=== PATIENT | female | born 1945 | race Caucasian/White ===

== ENCOUNTER → 2018-05-20 12:55 | Outpatient (CLI) | payer MEDICARE, OTHER, SELFPAY ==
--- NOTE | 2018-05-20 | DI.MG.S_ITS ---
UNILATERAL RIGHT DIGITAL SCREENING MAMMOGRAM 3D/2D WITH CAD POST MASTECTOMY: 05/20/2018 CLINICAL: Routine screening. Personal history of left breast cancer. Family history of breast cancer. Comparison is made to exams dated: 05/09/2017 mammogram, 05/08/2016 mammogram, and 05/05/2015 mammogram - [facility]. There are scattered fibroglandular elements in the right breast. Current study was also evaluated with a Computer Aided Detection (CAD) system. No significant masses, calcifications, or other findings are seen in the breast. There has been no significant interval change. IMPRESSION: NEGATIVE There is no mammographic evidence of malignancy. A 1 year screening mammogram is recommended. This exam was interpreted at Station ID: [id number]. NOTE: For mammograms, a report in lay terms will be sent to the patient. Approximately 15% of breast malignancies will not be visualized mammographically. In the management of a palpable breast mass, a negative mammogram must not discourage biopsy of a clinically suspicious lesion. Electronically Signed By: Chadd duke/thor:05/20/2018 14:47:42 letter sent: Normal Exam ACR BI-RADS Category 1: Negative 3341F
== END ==
PROVIDERS: PCP Family Medicine; Visit Provider Family Medicine
DX: Z12.31 Encounter for screening mammogram for malignant neoplasm of breast (principal); Z85.3 Personal history of malignant neoplasm of breast; Z80.3 Family history of malignant neoplasm of breast
CPT/HCPCS: 77063; 77065

== ENCOUNTER → 2018-10-07 13:52 | Outpatient (CLI) | payer MEDICARE, OTHER, SELFPAY ==
[2018-10-07 14:43] LABS: Hematocrit 39.3 % (36-46); Hemoglobin 12.8 g/dL (12.0-16.0); Mean Corpuscular HGB Conc 32.6 % (30-36); Mean Corpuscular Hemoglobin 31.5 PG (26-34); Mean Corpuscular Volume 96.6 fL (80-100); Platelet Count 178 X10^3/uL (150-400); Red Blood Cell Count 4.06 X10^6/uL (4.0-5.2); Red Cell Distribution Width 12.5 % (11.6-14.8); White Blood Cell Count 5.3 X10^3/uL (4.5-11.0)
[2018-10-07 15:09] LABS: BUN Creatinine Ratio 18.9 (6-22); Blood Urea Nitrogen 17 mg/dL (7-17); Calcium 9.5 mg/dL (8.4-10.2); Carbon Dioxide 24 mmol/L (22-32); Chloride 102 mmol/L (98-107); Cholesterol 246 mg/dL (140-199); Estimated Glomerular Filt Rate > 60.0 mL/min (>60); Glucose 93 mg/dL (80-110); HDL Cholesterol 96 mg/dL (40-60); HEMOLYSIS < 15 (0-50); LDL Cholesterol Calculated 123 mg/dL (<100); Potassium 4.4 mmol/L (3.4-5.1); Sodium 138 mmol/L (137-145); Triglycerides 137 mg/dL (35-150)
[2018-10-07 15:36] LABS: Vitamin D 25 Hydroxy (D3) 46.5 ng/mL (30.0-100.0)
[2018-10-07 15:38] LABS: TSH w/ Reflex to FT4 0.99 uIU/mL (0.47-4.68)
== END ==
PROVIDERS: PCP Student in an Organized Health Care Education/Training Program; Visit Provider Student in an Organized Health Care Education/Training Program
DX: E55.9 Vitamin D deficiency, unspecified (principal); R00.2 Palpitations; Z13.220 Encounter for screening for lipoid disorders
CPT/HCPCS: 36415; 80048; 80061; 82306; 84443; 85027

== ENCOUNTER → 2019-04-04 14:52 | Outpatient (CLI) | payer MEDICARE, OTHER, SELFPAY ==
--- NOTE | 2019-04-04 14:54 | DI.US.S_ITS ---
PROCEDURE: US EXTREMITY NONVASC LOWER LT INDICATIONS: LOCALIZED MASS TO LT LOWER EXTREMITY TECHNIQUE: Real-time scanning was performed of the left lower extremity, with image documentation. COMPARISON: None. FINDINGS: Multiple grayscale and color Doppler images of the posterior left leg were acquired, targeting the palpable area of patient's concern. This localized to the left lower leg, posterior mid calf. There is a superficial oval hypoechoic mass measuring 6 x 3 x 5 mm in size. It is wider than tall, parallel to the skin surface with apparent peripheral calcifications and resulting posterior shadowing. There is also mild peripheral vascularity. No adjacent architectural distortion. It appears to be deep to the skin and superficial to the underlying muscle fascia. Definitive exclusion of adherence to the fascia cannot be determined secondary to shadowing artifact. IMPRESSION: Oval, hypoechoic, peripherally calcified subcutaneous mass measuring up to 6 mm in size involving the posterior left calf. This correlates with palpable area of patient concern. Minimal peripheral vascularity. Consider excisional biopsy for definitive diagnosis as both benign and malignant lesions can have a similar appearance. Favor nonaggressive etiology. Dictated by: Henry Branham M.D. on 04/04/2019 at 17:14 Approved by: Henry Branham M.D. on 04/04/2019 at 17:18
== END ==
PROVIDERS: PCP Nurse Practitioner; Visit Provider Registered Nurse
DX: R22.42 Localized swelling, mass and lump, left lower limb (principal)
CPT/HCPCS: 76882

== ENCOUNTER → 2019-05-13 09:15 | Outpatient (CLI) | payer MEDICARE, OTHER, SELFPAY ==
[2019-05-13 11:20] LABS: Alanine Aminotransferase 33 IU/L (9-52); Albumin 3.9 g/dL (3.5-5.0); Albumin Globulin Ratio 1.6 (1.0-2.8); Alkaline Phosphatase 73 U/L (38-126); Aspartate Aminotransferase 35 IU/L (14-36); Bilirubin Total 0.6 mg/dL (0.2-1.3); Bilirubin Unconjugated 0.5 mg/dL (0.0-1.1); Cholesterol 154 mg/dL (140-199); Globulin 2.5 g/dL (1.7-4.1); HDL Cholesterol 87 mg/dL (40-60); HEMOLYSIS < 15 (0-50); LDL Cholesterol Calculated 56 mg/dL (<100); Magnesium 1.8 mg/dL (1.6-2.3); Total Protein 6.4 g/dL (6.3-8.2); Triglycerides 57 mg/dL (35-150)
== END ==
PROVIDERS: PCP Student in an Organized Health Care Education/Training Program; Visit Provider Student in an Organized Health Care Education/Training Program
DX: E78.2 Mixed hyperlipidemia (principal); R25.2 Cramp and spasm; Z79.899 Other long term (current) drug therapy
CPT/HCPCS: 36415; 80061; 80076; 83735

== ENCOUNTER → 2019-05-24 10:42 | Outpatient (CLI) | payer MEDICARE, OTHER, SELFPAY ==
--- NOTE | 2019-05-24 | DI.MG.S_ITS ---
UNILATERAL RIGHT DIGITAL SCREENING MAMMOGRAM 3D/2D WITH CAD: 05/24/2019 CLINICAL: Routine screening. Personal history of left breast cancer. Family history of breast cancer. Comparison is made to exams dated: 05/20/2018 mammogram, 05/09/2017 mammogram, and 05/08/2016 mammogram - [facility]. There are scattered fibroglandular elements in right breast. Current study was also evaluated with a Computer Aided Detection (CAD) system. No significant masses, calcifications, or other findings are seen in the breast. There has been no significant interval change. IMPRESSION: NEGATIVE There is no mammographic evidence of malignancy. A 1 year screening mammogram is recommended. This exam was interpreted at Station ID: [id number]. NOTE: For mammograms, a report in lay terms will be sent to the patient. Approximately 15% of breast malignancies will not be visualized mammographically. In the management of a palpable breast mass, a negative mammogram must not discourage biopsy of a clinically suspicious lesion. Electronically Signed By: Meseret dumont/thor:05/27/2019 13:42:02 letter sent: Normal Exam ACR BI-RADS Category 1: Negative 3341F
== END ==
PROVIDERS: PCP Student in an Organized Health Care Education/Training Program; Visit Provider Student in an Organized Health Care Education/Training Program
DX: Z12.31 Encounter for screening mammogram for malignant neoplasm of breast (principal); Z85.3 Personal history of malignant neoplasm of breast; Z80.3 Family history of malignant neoplasm of breast
CPT/HCPCS: 77063; 77067

== ENCOUNTER 2019-06-30 11:53 | Emergency (ER) | payer MEDICARE, OTHER, SELFPAY ==
[2019-06-30 13:00] VITALS: BP 138/76; PULSE 62; RESP 20; TEMP 37.6; O2SAT 96
--- NOTE | 2019-06-30 13:05 | DI.RAD.S_ITS ---
PROCEDURE: XR CHEST 2V INDICATIONS: cough/fever/soa TECHNIQUE: 2 views of the chest were acquired. COMPARISON: [facility], CR, RIBS UNILATERAL WITH PA CXR, 07/06/2017, 15:30. FINDINGS: Surgical changes and devices: None. Lungs and pleura: Lungs are clear. No pleural effusions or pneumothorax. Mediastinum: Mediastinal contours are normal. Heart size is normal. Bones and chest wall: No suspicious bony abnormalities. Soft tissues appear unremarkable. IMPRESSION: Relatively large lung volumes, COPD may be present as the underlying cause but this also could simply represent progressive inspiratory effort. No pneumonia found. Dictated by: Bairon Jain M.D. on 06/30/2019 at 13:36 Approved by: Bairon Jain M.D. on 06/30/2019 at 13:38
[2019-06-30 13:39] LABS: Influenza A and B by PCR Rapid Negative (Negative)
[2019-06-30 14:31] VITALS: BP 138/71; PULSE 60; RESP 13; TEMP 36.7; O2SAT 98
--- NOTE | 2019-06-30 15:02 | ED.FEVER ---
HPI - Fever <JARAD Vasquez - Last Filed: 06/30/19 16:21> General Chief Complaint: Fever Stated Complaint: Flu, pressure on lungs Time Seen by Provider: 06/30/19 14:32 Source: patient Mode of arrival: Ambulatory Limitations: no limitations History of Present Illness HPI Narrative: The patient is a 73-year-old female nonsmoker with history of hyperlipidemia who presents for chief complaint of cough and congestion x5 days. She said she had a temps up to 100?. She states this is high for her. She complains of ear pressure and sore throat with coughing. She denies any abdominal pain nausea vomiting or diarrhea. She states she has tried chct-sxi-bkloqfk cold medications as well as emergency to feel better. Related Data Home Medications Medication Instructions Recorded Confirmed CHOLECALCIFEROL (VITAMIN D) 2,000 units PO QDAY #0 02/11/13 05/07/19 calcium acetate 667 mg PO Q DAY #0 02/11/13 05/07/19 aspirin 81 mg tablet,delayed 81 mg PO DAILY 11/19/18 05/07/19 release esomeprazole magnesium 20 mg 20 mg PO DAILY 11/19/18 05/07/19 capsule,delayed release metoprolol succinate 50 mg PO DAILY 06/30/19 06/30/19 trazodone 300 mg PO BEDTIME 06/30/19 06/30/19 Previous Rx's Medication Instructions Recorded tramadol 50 mg tablet 50 mg PO TID PRN #45 tab 02/28/19 estradiol 10 mcg vaginal tablet 10 mcg VAG 2XW #32 tab 04/28/19 gabapentin 300 mg capsule 300 mg PO BID #60 cap 05/07/19 atorvastatin 40 mg tablet 40 mg PO BEDTIME #30 tab 05/14/19 Allergies Allergy/AdvReac Type Severity Reaction Status Date / Time codeine [CODEINE] AdvReac Mild GI upset Verified 05/07/19 09:49 Review of Systems <JARAD Vasquez - Last Filed: 06/30/19 16:21> Review of Systems Narrative: GENERAL: See HPI HEENT: See HPI RESPIRATORY: See HPI CARDIOVASCULAR: Denies chest pain, palpitations, orthopnea, edema, GASTROINTESTINAL: Denies nausea, vomiting, abdominal pain, diarrhea, constipation, melena. : Denies dysuria, frequency, incontinence, hematuria, urinary retention. MUSCULOSKELETAL: denies weakness, joint pain, or bony pain SKIN: Denies rash, skin lesions, or other NEUROLOGIC: Denies weakness, headache, numbness, change in speech, confusion, seizures, incoordination. PSYCHIATRIC: No concerning psychosocial issues. 12 point review of systems is negative except for those stated above PFSH <Maria A ELIANE Richter-BC - Last Filed: 06/30/19 16:21> Surgical History (Updated 01/22/18 @ 06:21 by DAQUAN Joaquin) History of total mastectomy Status post hysterectomy with oophorectomy Family History (Updated 05/04/14 @ 00:00 by Conversion Provider) Brother Age: 74 Cancer Hypertension Father Congestive heart failure Stroke Mother Breast CA Alcoholism Hypertension Social History Smoking Status: Unknown if ever smoked alcohol intake: current substance use type: marijuana Family History (Updated 05/04/14 @ 00:00 by Conversion Provider) Brother Age: 74 Cancer Hypertension Father Congestive heart failure Stroke Mother Breast CA Alcoholism Hypertension Social History Smoking Status: Unknown if ever smoked alcohol intake: current substance use type: marijuana Exam <Maria A ELIANE Richter- - Last Filed: 06/30/19 16:21> Narrative Exam Narrative: GENERAL: This is a well-nourished, well-developed patient, in no acute distress HEAD: Atraumatic. Normocephalic. No temporal or scalp tenderness. EYES: Pupils equal round and reactive. Extraocular motions intact. No scleral icterus. No injection or drainage. ENT: Nose without bleeding, purulent drainage or septal hematoma. Throat without erythema, tonsillar hypertrophy or exudate. Uvula midline. Airway patent. Bilateral TMs pearly humphries. Bilateral ear canals within normal limits. NECK: Trachea midline. No JVD or lymphadenopathy. Supple, nontender, no meningeal signs. CARDIOVASCULAR: Regular rate and rhythm without murmurs, gallops, or rubs. RESPIRATORY: Clear to auscultation. Breath sounds equal bilaterally. No wheezes, rales, or rhonchi. Occasional cough. Loose sounding. No increased respiratory effort. No accessory muscle use. No stridor. GASTROINTESTINAL: Abdomen soft, non-tender, nondistended. No hepato-splenomegaly, or palpable masses. No guarding. Active bowel sounds all 4 quadrants. EXTREMITIES: No clubbing, cyanosis, or edema. No joint tenderness, effusion, or edema noted. BACK: Nontender without deformity or crepitance. No flank tenderness. NEURO: AOx3. SKIN: No rash or erythema. Initial Vital Signs Initial Vital Signs: Vital Signs Temperature 99.6 F 06/30/19 13:00 Pulse Rate 62 06/30/19 13:00 Respiratory Rate 20 06/30/19 13:00 Blood Pressure 138/76 06/30/19 13:00 Pulse Oximetry 96 06/30/19 13:00 <Maria A Jacobo DO - Last Filed: 06/30/19 19:28> Initial Vital Signs Initial Vital Signs: Vital Signs Temperature 99.6 F 06/30/19 13:00 Pulse Rate 62 06/30/19 13:00 Respiratory Rate 20 06/30/19 13:00 Blood Pressure 138/76 06/30/19 13:00 Pulse Oximetry 96 06/30/19 13:00 Course <JARAD Vasquez - Last Filed: 06/30/19 16:21> Orders Ordered: ED Orders 06/30/19 13:04 Influenza A and B by PCR Rapid Stat 06/30/19 13:05 XR chest 2V Stat Vital Signs Vital signs: Vital Signs - 8 hr 06/30/19 13:00 06/30/19 14:31 Temperature 99.6 F 98.1 F Pulse Rate 62 60 Respiratory Rate 20 13 Blood Pressure 138/76 Blood Pressure [Right Arm] 138/71 Pulse Oximetry 96 98 <Maria A Jacobo DO - Last Filed: 06/30/19 19:28> Orders Ordered: ED Orders 06/30/19 13:04 Influenza A and B by PCR Rapid Stat 06/30/19 13:05 XR chest 2V Stat Vital Signs Vital signs: Vital Signs - 8 hr 06/30/19 13:00 06/30/19 14:31 Temperature 99.6 F 98.1 F Pulse Rate 62 60 Respiratory Rate 20 13 Blood Pressure 138/76 Blood Pressure [Right Arm] 138/71 Pulse Oximetry 96 98 MDM - Fever <JARAD Vasquez Last Filed: 06/30/19 16:21> Lab Data Labs: Lab Results 06/30/19 Range/Units 13:04 Influenza A & B (PCR) Negative (Negative) Imaging Data Chest x-ray: Radiologist's impression: [address] [address] XRay Report Signed Patient: Devi VacaR#: [id number] : 7Acct:[id number] Age/Sex: 73 / FDate of Service: 06/30/19 Loc: ED Accession Number: [id number] Procedure: XR chest 2V Ordering Provider: Maria A Jacobo D.O. PROCEDURE: XR CHEST 2V INDICATIONS: cough/fever/soa TECHNIQUE: 2 views of the chest were acquired. COMPARISON: [facility], CR, RIBS UNILATERAL WITH PA CXR, 07/06/2017, 15:30. FINDINGS: Surgical changes and devices: None. Lungs and pleura: Lungs are clear. No pleural effusions or pneumothorax. Mediastinum: Mediastinal contours are normal. Heart size is normal. Bones and chest wall: No suspicious bony abnormalities. Soft tissues appear unremarkable. IMPRESSION: Relatively large lung volumes, COPD may be present as the underlying cause but this also could simply represent progressive inspiratory effort. No pneumonia found. Dictated by: Bairon Jain M.D. on 06/30/2019 at 13:36 Approved by: Bairon Jain M.D. on 06/30/2019 at 13:38 MDM Narrative Medical decision making narrative: The patient is a 73-year-old female who presents for chief complaint of I think I might have the flu or pneumonia.She has negative flu in her chest x-ray does not show any pneumonia. I offered to do further lab work, but the patient declined stating she did receive which she in the emergency department. She has a benign overall exam, no indications of bacterial infection, and is in no acute respiratory distress. Her vital signs remained stable. I discussed at length follow up with primary care provider as well as come back to emergency department for any acute concerns such as chest pain, shortness of breath etc. Encouraged continued athe-myr-tjvsvhv remedy as needed and able. Patient has no questions or concerns, reiterates that she would like to leave without further workup states understanding of return precautions as well as follow-up care. <Maria A Jacobo DO - Last Filed: 06/30/19 19:28> Lab Data Labs: Lab Results 06/30/19 Range/Units 13:04 Influenza A & B (PCR) Negative (Negative) Discharge Plan Departure Patient Disposition: Home Clinical Impression: Cough, Acute viral syndrome Discharge Date/Time: 06/30/19 15:11 Instructions: DI for Cough -- Adult, DI for Viral Upper Respiratory Infection -- Adult, DI for Viral Syndrome Activity Restrictions/Additional Instructions: Today your flu test came back negative. Your x-ray shows no pneumonia. You have no evidence of bacterial infection on your exam. Please continue yqby-zqc-clmlcen remedies such as sinus rinse, Flonase, and honey and lemon to help feel better. Please rest and push fluids. Please follow up with primary care provider for re-evaluation in a few days. Please come back to emergency department for any acute concerns such as chest pain, shortness of breath etc Prescriptions: No Action calcium acetate 667 MG capsule 667 mg PO Q DAY Qty: 0 RF: 0 CHOLECALCIFEROL (VITAMIN D) 2,000 units PO QDAY Qty: 0 RF: 0 estradiol [Vagifem] 10 mcg tablet 10 mcg VAG 2XW Qty: 32 RF: 3 atorvastatin 40 mg tablet 40 mg PO BEDTIME Qty: 30 RF: 5 aspirin [Adult Low Dose Aspirin] 81 mg tablet,delayed release (DR/EC) 81 mg PO DAILY RF: 0 esomeprazole magnesium 20 mg capsule,delayed release(DR/EC) 20 mg PO DAILY RF: 0 tramadol 50 mg tablet 50 mg PO TID PRN (Reason: pain) Qty: 45 RF: 5 gabapentin 300 mg capsule 300 mg PO BID Qty: 60 RF: 0 metoprolol succinate 50 mg tablet extended release 24 hr 50 mg PO DAILY RF: 0 trazodone 100 mg tablet 300 mg PO BEDTIME RF: 0 Referrals: Marlo Sylvester MD [Primary Care Provider] -
== END 2019-06-30 15:11 | disposition home or self-care (01) ==
PROVIDERS: Emergency Medicine; Emergency Provider Nurse Practitioner Family; PCP Student in an Organized Health Care Education/Training Program
DX: R05 Cough (principal); B34.9 Viral infection, unspecified
CPT/HCPCS: 71046; 87400; 87502; 99282; 99284

== ENCOUNTER 2019-11-27 13:27 | Day surgery (SDC) | payer MEDICARE, OTHER, SELFPAY ==
[2019-11-27 13:53] VITALS: BP 127/75; PULSE 71; RESP 16; TEMP 36.8; O2SAT 96; BMI 22.3
[2019-11-27] MEDS: SODIUM CHLORIDE 0.9% 1,000 ML 200 ML IV (14:02)
--- NOTE | 2019-11-27 14:20 | PM.HP.1 ---
History of Present Illness History of Present Illness Date Patient Seen: 11/27/19 Time Patient Seen: 14:20 Chief complaint: [id number] Narrative: Patient presents for colorectal screening. They had a prior colonoscopy 5 years ago that demonstraed polyps. No personal or family history of colon cancer. On further history denies any recent gastrointestinal symptoms. No nausea, vomiting, abdominal pain, loss of appetite, unexplained weight loss, change in bowel habits, diarrhea, constipation, melena, hematochezia, or bright red blood per rectum. Patient History Surgical History History of total mastectomy Status post hysterectomy with oophorectomy Family & Social History Family History Brother Age: 74 Cancer Hypertension Father Congestive heart failure Stroke Mother Breast CA Alcoholism Hypertension Social History: household members significant other Tobacco & Substance use: Smoking Status Unknown if ever smoked alcohol intake current alcohol intake frequency 0-2 drinks per day Substance Use Type does not use Meds Home Medications and Allergies Home Medications Medication Instructions Recorded Confirmed Type CHOLECALCIFEROL (VITAMIN D) 2,000 units PO QDAY #0 02/11/13 11/25/19 History calcium acetate(phosphat bind) 667 mg PO Q DAY #0 02/11/13 11/25/19 History aspirin 81 mg tablet,delayed 81 mg PO DAILY 11/19/18 11/25/19 History release metoprolol succinate 50 mg PO DAILY 06/30/19 11/25/19 History estradiol 10 mcg vaginal tablet 10 mcg VAG 2XW #30 tab 09/03/19 11/25/19 Rx mupirocin 2 % topical ointment 1 applic TOP BID #30 gram 09/24/19 11/25/19 Rx trazodone 100 mg tablet 300 mg PO BEDTIME #270 tab 10/06/19 11/25/19 Rx atorvastatin 40 mg tablet 40 mg PO BEDTIME #90 tab 10/07/19 11/25/19 Rx tramadol 50 mg tablet 50 mg PO TID PRN #45 tab 10/07/19 11/25/19 Rx sodium,potassium,mag sulfates 17.5 177 ml PO DAILY #354 ml 11/05/19 11/25/19 Rx gram-3.13 gram-1.6 gram oral soln benzonatate 100 mg capsule 100 mg PO BID PRN 7 Days #14 cap 11/25/19 11/25/19 Rx prednisone 10 mg tablet 20 mg PO DAILY #10 tab 11/25/19 11/25/19 Rx Allergies Allergy/AdvReac Type Severity Reaction Status Date / Time codeine [CODEINE] AdvReac Mild GI upset Verified 11/25/19 16:36 Review of Systems Review of Systems Narrative: A 10 point review of systems is negative except as noted in the HPI Exam Vital Signs (past 8 hours): - 11/27/19 13:53 Temperature 98.3 F Pulse Rate 71 Respiratory Rate 16 Blood Pressure 127/75 Pulse Oximetry 96 Oxygen Delivery Method Room Air Narrative Exam Narrative: General-no acute distress, well nourished HEENT-moist mucous membranes, no scleral icterus Neck-supple, no lymphadenopathy Chest- non labored respirations, clear to auscultation bilaterally Cardiac-regular rate no peripheral edema Abdomen-soft, nontender, non distended Extremities-warm, well perfused Neurological-alert and oriented, no focal deficits Assessment & Plan Assessment and plan (1) Screening for colon cancer: Current visit: Yes Status: Acute Assessment & Plan narrative: The patient requires colorectal screening and colonoscopy is recommended. Technical details were discussed. Risks, benefits, alternatives explained. Risks including but not limited to myocardial infarction, aspiration, bleeding, pain, missed lesion, incomplete examination, need for further radiographic studies, colonic perforation, and need for major abdominal surgery were discussed. All questions were answered to their satisfaction, and they are in agreement with this plan.
[2019-11-27] MEDS: MIDAZOLAM 5 MG/5 ML VIAL IV (14:31)
[2019-11-27] MEDS: fentaNYL 250 MCG/5 ML INJ IV (14:32)
--- NOTE | 2019-11-27 14:58 | PM.OP.ENDO ---
Operative Date/Time/Diagnoses Date of procedure: 11/27/19 Time of procedure: 14:58 Pre-op diagnosis: Screening colonoscopy Post-op diagnosis: same Procedure & Clinicians Study performed: Colonoscopy Same procedure as scheduled: Yes Indications: History of adenomatous polyps Surgeon: Adam Alcaraz Procedure Notes SCOAP/Timeout: Performed Procedure in detail: Patient placed in left lateral decubitus position. Time out was performed. Procedural sedation was administered with Versed and Fentanyl. A rectal exam demonstrated no external hemorrhoids no internal masses. Colonoscopy scope was placed into the rectum and advanced through the colon to the cecum. The ileocecal valve was identified. The scope was then slowly withdrawn examining colon thoroughly in all directions. The colonoscopy was notable for the following 1. Sigmoid diverticulosis 2. Quality of prep excellent 3. No masses or polyps Scope withdrawal time: 7 Sedation minutes: 25 Findings: diverticulosis Specimen(s): none sent Complications: none Impression: Diverticulosis Post-procedure Recommendations: Colonscopy in 10 years Disposition: same day surgery
[2019-11-27 15:05] VITALS: BP 133/57; PULSE 75; RESP 10; TEMP 36.8; O2SAT 93
[2019-11-27 15:10] VITALS: BP 126/53; PULSE 70; RESP 12; O2SAT 6
[2019-11-27 15:15] VITALS: BP 121/49; PULSE 70; RESP 12; O2SAT 93
[2019-11-27 15:20] VITALS: BP 110/62; BP 145/65; PULSE 74; PULSE 80; RESP 16; TEMP 36.2; O2SAT 95; O2SAT 96
--- NOTE | 2019-11-27 15:51 | SUR.PHASEII ---
discharged patient home with all belongings in stable condition with friend. No pain or vomiting noted at discharge. VSS.
== END 2019-11-27 15:51 | disposition home or self-care (01) ==
PROVIDERS: PCP Student in an Organized Health Care Education/Training Program; Referring Provider Surgery; Visit Provider Surgery
PROC: 0DJD8ZZ Inspection of Lower Intestinal Tract, Via Natural or Artificial Opening Endoscopic (ICD-10-PCS; CPT 45378; principal; 2019-11-27 14:30)
DX: Z12.11 Encounter for screening for malignant neoplasm of colon (principal); Z86.010 Personal history of colon polyps; K57.30 Diverticulosis of large intestine without perforation or abscess without bleeding
CPT/HCPCS: G0105; 99152; J2250; J3010

== ENCOUNTER → 2019-12-04 14:17 | Outpatient (CLI) | payer MEDICARE, OTHER, SELFPAY ==
--- NOTE | 2019-12-04 14:19 | DI.RAD.S_ITS ---
PROCEDURE: XR CHEST 2V INDICATIONS: Cough TECHNIQUE: 2 views of the chest were acquired. COMPARISON: [facility], CR, XR CHEST 2V, 06/30/2019, 14:06. FINDINGS: Surgical changes and devices: Surgical changes in the left breast and axilla. Lungs and pleura: Lungs are clear. No pleural effusions or pneumothorax. Mediastinum: Mediastinal contours are normal. Heart size is normal. Bones and chest wall: No suspicious bony abnormalities. Soft tissues appear unremarkable. IMPRESSION: No acute cardiopulmonary disease. Dictated by: Chuyita Rod M.D. on 12/04/2019 at 15:24 Approved by: Chuyita Rod M.D. on 12/04/2019 at 15:25
== END ==
PROVIDERS: PCP Student in an Organized Health Care Education/Training Program; Referring Provider Student in an Organized Health Care Education/Training Program; Visit Provider Student in an Organized Health Care Education/Training Program
DX: R05 Cough (principal)
CPT/HCPCS: 71046

== ENCOUNTER → 2020-04-20 09:05 | Outpatient (CLI) | payer MEDICARE, OTHER, SELFPAY ==
[2020-04-20 09:52] LABS: Add Manual Diff / Slide Review NO; Basophils Absolute Auto 0 /uL (0-100); Basophils Percent Auto 0.8 % (0-2); Eosinophils Absolute Auto 100 /uL (0-450); Hematocrit 36.5 % (36-46); Hemoglobin 12.1 g/dL (12.0-16.0); Lymphocytes Absolute Auto 1100 /uL (1100-4500); Lymphocytes Percent Auto 27.1 % (25-40); Mean Corpuscular HGB Conc 33.2 % (30-36); Mean Corpuscular Hemoglobin 31.6 PG (26-34); Mean Corpuscular Volume 95.3 fL (80-100); Monocytes Absolute Auto 500 /uL (0-900); Neutrophils Absolute Auto 2400 /uL (1500-7000); Neutrophils Percent Auto 59.1 % (50-75); Platelet Count 146 X10^3/uL (150-400); Red Blood Cell Count 3.84 X10^6/uL (4.0-5.2); Red Cell Distribution Width 13.2 % (11.6-14.8); White Blood Cell Count 4.1 X10^3/uL (4.5-11.0)
[2020-04-20 10:37] LABS: Erythrocyte Sedimentation Rate 4 MM/HR (0-20)
[2020-04-20 11:04] LABS: C-Reactive Protein Quant < 0.5 mg/dL (<1.0)
== END ==
PROVIDERS: PCP Student in an Organized Health Care Education/Training Program; Referring Provider Orthopaedic Surgery; Visit Provider Orthopaedic Surgery
DX: M25.561 Pain in right knee (principal); T84.53XA Infection and inflammatory reaction due to internal right knee prosthesis, initial encounter
CPT/HCPCS: 36415; 85025; 85651; 86140

== ENCOUNTER → 2020-06-25 10:41 | Outpatient (CLI) | payer MEDICARE, OTHER, SELFPAY ==
--- NOTE | 2020-06-25 | DI.MG.S_ITS ---
UNILATERAL RIGHT DIGITAL SCREENING MAMMOGRAM 3D/2D WITH CAD POST MASTECTOMY: 06/25/2020 CLINICAL: Routine screening. Personal history of left breast cancer. Family history of breast cancer. Comparison is made to exams dated: 05/24/2019 mammogram, 05/20/2018 mammogram, and 05/09/2017 mammogram - [facility]. There are scattered fibroglandular elements in right breast. Current study was also evaluated with a Computer Aided Detection (CAD) system. No significant masses, calcifications, or other findings are seen in the breast. There has been no significant interval change. IMPRESSION: NEGATIVE There is no mammographic evidence of malignancy. A 1 year screening mammogram is recommended. This exam was interpreted at Station ID: [id number]. NOTE: For mammograms, a report in lay terms will be sent to the patient. Approximately 15% of breast malignancies will not be visualized mammographically. In the management of a palpable breast mass, a negative mammogram must not discourage biopsy of a clinically suspicious lesion. Electronically Signed By: Meseret dumont/thor:06/25/2020 11:26:48 letter sent: Normal Exam ACR BI-RADS Category 1: Negative 3341F
== END ==
PROVIDERS: PCP Student in an Organized Health Care Education/Training Program; Referring Provider Student in an Organized Health Care Education/Training Program; Visit Provider Student in an Organized Health Care Education/Training Program
DX: Z12.31 Encounter for screening mammogram for malignant neoplasm of breast (principal); Z85.3 Personal history of malignant neoplasm of breast; Z80.3 Family history of malignant neoplasm of breast
CPT/HCPCS: 77063; 77067

== ENCOUNTER → 2020-07-01 12:48 | Outpatient (CLI) | payer MEDICARE, OTHER, SELFPAY ==
--- NOTE | 2020-07-01 | DI.RAD.S_ITS ---
PROCEDURE: XR DEXA AXIAL SKELETON INDICATIONS: SCREENING COMPARISON: None. FINDINGS: This blank DEXA report has been sent in error by the PACS system. The correct and complete report will be forthcoming in 1-2 days. Thank you for your patience and understanding. Dictated by: Ernestina Segundo MD, PhD on 07/01/2020 at 16:15 Approved by: Ernestina Segundo MD, PhD on 07/01/2020 at 16:17
== END ==
PROVIDERS: PCP Student in an Organized Health Care Education/Training Program; Referring Provider Student in an Organized Health Care Education/Training Program; Visit Provider Student in an Organized Health Care Education/Training Program
DX: Z13.820 Encounter for screening for osteoporosis (principal); M85.851 Other specified disorders of bone density and structure, right thigh; Z78.0 Asymptomatic menopausal state; Z90.722 Acquired absence of ovaries, bilateral; Z85.3 Personal history of malignant neoplasm of breast; Z87.891 Personal history of nicotine dependence
CPT/HCPCS: 77080

== ENCOUNTER → 2021-01-28 15:20 | Outpatient (CLI) | payer MEDICARE, OTHER, SELFPAY ==
--- NOTE | 2021-01-28 15:23 | DI.RAD.S_ITS ---
PROCEDURE: XR SACRUM COCCYX MIN 2V INDICATIONS: Re-evaluate worsening lumbar spinal pain TECHNIQUE: 3 views of the sacrum and coccyx acquired. COMPARISON: None. FINDINGS: Bones: No fractures or dislocations. No suspicious bony lesions. Lumbar spondylosis and facet arthropathy. Mild bilateral hip osteoarthritis. Trace anterolisthesis of L4 on L5. Soft tissues: Surgical clips project in the right pelvis. IMPRESSION: Lumbar spondylosis and facet arthropathy. Mild bilateral hip osteoarthritis. Dictated by: Alberto Espinosa M.D. on 01/28/2021 at 16:11 Approved by: Alberto Espinosa M.D. on 01/28/2021 at 16:12
--- NOTE | 2021-01-28 15:23 | DI.RAD.S_ITS ---
PROCEDURE: XR LUMBAR SPINE 2-3V INDICATIONS: Re-evaluate worsening lumbar spinal pain TECHNIQUE: 3 views of the lumbar spine were acquired. COMPARISON: [facility], , L-SPINE 2-3 VIEWS, 07/06/2017, 15:30. FINDINGS: Bones: No fracture. Grade 1 anterolisthesis of L4 on L5 and trace anterolisthesis of L3 on L4. Multilevel degenerative endplate sclerosis and spurring. Diffuse facet arthropathy. Moderate narrowing of the L2-L3 disc space. Mild narrowing of the remaining lumbar disc spaces. Lower thoracic spondylitic changes also noted. Soft tissues: Overlying bowel gas pattern is normal. No suspicious soft tissue calcifications. IMPRESSION: Multilevel lumbar spondylosis and facet arthropathy. Overall, no interval change since 07/06/17. Dictated by: Alberto Espinosa M.D. on 01/28/2021 at 16:12 Approved by: Alberto Espinosa M.D. on 01/28/2021 at 16:14
== END ==
PROVIDERS: PCP Student in an Organized Health Care Education/Training Program; Referring Provider Student in an Organized Health Care Education/Training Program; Visit Provider Student in an Organized Health Care Education/Training Program
DX: M54.5 Low back pain (principal); M47.816 Spondylosis without myelopathy or radiculopathy, lumbar region; M51.36 Other intervertebral disc degeneration, lumbar region; M16.0 Bilateral primary osteoarthritis of hip
CPT/HCPCS: 72100; 72220

== ENCOUNTER → 2021-04-22 17:43 | Outpatient (CLI) | payer MEDICARE, OTHER, SELFPAY ==
--- NOTE | 2021-04-22 | DI.MRI.S_ITS ---
PROCEDURE: MR LUMBAR SPINE WO CON INDICATIONS: Spinal stenosis, lumbar region with neurogenic cla TECHNIQUE: Noncontrast sagittal T1 spin echo and T2 fast echo, sagittal STIR, axial T1 and T2 fast spin echo through the lumbar spine. In cases with scoliosis, additional coronal T2 fast spin echo may be performed. COMPARISON: [facility], MR, L-SPINE WITHOUT CONTRAST, 05/26/2015, 8:10. [facility], MR, L-SPINE WITHOUT CONTRAST, 01/10/2018, 16:25. [facility], CR, XR LUMBAR SPINE 2-3V, 01/28/2021, 15:30. FINDINGS: Image quality: Excellent. Alignment and Curvature: There is mild L4-L5 anterolisthesis secondary to facet hypertrophy. There is trace L2-L3 retrolisthesis secondary to facet hypertrophy. Bone Marrow: Marrow is of normal overall signal. No acute vertebral body compression fractures. Spinal Cord: Conus medullaris terminates at the T12-L1 disc level. Visualized cord demonstrates normal signal and size. Paraspinous Soft Tissues: No paravertebral masses. T12-L1: Normal appearance. L1-L2: Slight loss of disc signal. Minimal, diffuse disc bulge. Mild bilateral facet hypertrophy. No central stenosis. No neural foraminal narrowing. No neural compression. L2-L3: Loss of disc signal and mild loss of disc height. Mild, diffuse disc bulge. Mild bilateral facet hypertrophy. Mild narrowing of the central canal. Mild bilateral neural foraminal narrowing. No neural compression. L3-L4: Loss of disc signal. Mild, diffuse disc bulge. [id number] bilateral facet hypertrophy. Mild narrowing of the central canal. Mild bilateral neural foraminal narrowing. No neural compression. L4-L5: Loss of disc signal and mild loss of disc height. Mild, diffuse disc bulge. Severe bilateral facet hypertrophy. Moderate to severe narrowing of the central canal. Mild to moderate right and severe left neural foraminal narrowing with slight compression of the exiting left L4 nerve root. L5-S1: Loss of disc signal. Mild, diffuse disc bulge. Moderate bilateral facet hypertrophy. No central stenosis. Mild bilateral neural foraminal narrowing. No neural compression. IMPRESSION: 1. Multilevel degenerative disc disease. 2. Multilevel facet arthropathy. 3. Moderate to severe L4-L5 central canal narrowing. 4. Severe left L4-L5 neural foraminal narrowing with slight compression of the exiting left L4 nerve root. 5. Grade 1 L4-L5 degenerative spondylolisthesis. Dictated by: Ernestina Segundo MD, PhD on 04/25/2021 at 10:49 Approved by: Ernestina Segundo MD, PhD on 04/25/2021 at 10:53
== END ==
PROVIDERS: PCP Student in an Organized Health Care Education/Training Program; Referring Provider Orthopaedic Surgery Orthopaedic Surgery of the Spine; Visit Provider Orthopaedic Surgery Orthopaedic Surgery of the Spine
DX: M48.062 Spinal stenosis, lumbar region with neurogenic claudication (principal); M43.16 Spondylolisthesis, lumbar region; M51.36 Other intervertebral disc degeneration, lumbar region; M51.37 Other intervertebral disc degeneration, lumbosacral region; M47.816 Spondylosis without myelopathy or radiculopathy, lumbar region; M47.817 Spondylosis without myelopathy or radiculopathy, lumbosacral region
CPT/HCPCS: 72148

== ENCOUNTER 2021-04-27 15:44 | Emergency (ER) | payer MEDICARE, OTHER, SELFPAY ==
[2021-04-27 15:53] VITALS: BP 129/69; PULSE 55; RESP 16; TEMP 36.4; O2SAT 99
--- NOTE | 2021-04-27 15:56 | DI.RAD.S_ITS ---
PROCEDURE: XR TOE LT MIN 2V INDICATIONS: dropped calero on foot TECHNIQUE: 3 views of the 1st and 2nd toe(s) acquired. COMPARISON: None. FINDINGS: Bones: No fractures or dislocations. No suspicious bony lesions. Remote great toe metatarsal osteotomy and bunionectomy. Orthopedic screws are intact with no evidence of hardware failure or loosening. 1st MTP degenerative change. Soft tissues: No suspicious soft tissue densities. IMPRESSION: No evidence of acute fracture or dislocation involving the 1st and 2nd toes of the left foot. Dictated by: Joe Delcid M.D. on 04/27/2021 at 16:24 Approved by: Joe Delcid M.D. on 04/27/2021 at 16:26
--- NOTE | 2021-04-27 19:13 | ED_ITS ---
HPI - Extremity Injury (Lower) General Chief Complaint: Extremity Injury, Lower Stated Complaint: lt toe injury Time Seen by Provider: 04/27/21 19:11 Source: patient Mode of arrival: Ambulatory History of Present Illness HPI Narrative: Patient is a 75-year-old female here for evaluation of an injury that she sustained to her left great toe. States that approximately 1 week ago she dropped something on her toe. She has had some discomfort and bruising around the area since then. Symptoms were not improving so she came to the emergency department for evaluation. Related Data Home Medications Medication Instructions Recorded Confirmed CHOLECALCIFEROL (VITAMIN D) 2,000 units PO QDAY #0 02/11/13 06/22/20 calcium acetate(phosphat bind) 667 667 mg PO Q DAY #0 02/11/13 06/22/20 mg capsule aspirin 81 mg tablet,delayed 81 mg PO DAILY 11/19/18 06/22/20 release (Adult Low Dose Aspirin) Previous Rx's Medication Instructions Recorded mupirocin 2 % topical ointment 1 applic TOP BID #30 gram 09/24/19 sodium,potassium,mag sulfates 17.5 177 ml PO DAILY #354 ml 11/05/19 gram-3.13 gram-1.6 gram oral soln (Suprep Bowel Prep Kit) estradiol 10 mcg vaginal tablet 10 mcg VAG 2XW #30 tab 09/08/20 (Vagifem) trazodone 100 mg tablet 300 mg PO BEDTIME #270 tab 09/09/20 atorvastatin 40 mg tablet 40 mg PO BEDTIME #90 tab 10/05/20 tramadol 50 mg tablet 50 mg PO DAILY PRN #30 tab 01/14/21 metoprolol succinate 50 mg 50 mg PO DAILY #90 tab 04/18/21 tablet,extended release 24 hr Allergies Allergy/AdvReac Type Severity Reaction Status Date / Time codeine [CODEINE] AdvReac Mild GI upset Verified 06/22/20 14:32 Review of Systems Musculoskeletal Comments: Left great toe and 2nd toe pain Integumentary/Breasts Comments: Bruising around the left great toe and 2nd toe Neurologic Neurologic: Reports system reviewed and no additional complaints, except as documented Hematologic/Lymphatic On Anticoagulants: No Patient History Medical History Degenerative disc disease Facet arthropathy, lumbar Lymphedema (09/01/02) Palpitations Surgical History History of total mastectomy Status post hysterectomy with oophorectomy Family History Brother Age: 75 Cancer Hypertension Father Congestive heart failure Stroke Mother Breast CA Alcoholism Hypertension Social History household members: significant other Smoking Status: Unknown if ever smoked alcohol intake: current substance use type: marijuana Smoking Status: Unknown if ever smoked alcohol intake frequency: 0-2 drinks per day Substance Use Type: does not use Exam Initial Vital Signs Initial Vital Signs: Vital Signs Temperature 97.6 F 04/27/21 15:53 Pulse Rate 55 L 04/27/21 15:53 Respiratory Rate 16 04/27/21 15:53 Blood Pressure 129/69 04/27/21 15:53 Pulse Oximetry 99 04/27/21 15:53 HENMT Head: normal to inspection and normocephalic Cardio Pulses: dorsalis pedis present on the left Skin Other: Mild bruising around the MTP joint of the left great toe and 2nd toe. Neuro Sensory Exam: no sensory deficits noted Extrem Other: Patient with minimal tenderness to palpation along the left great toe. Rest of her left foot exam is unremarkable Psych Appearance: grossly normal and well kempt Course Orders Ordered: ED Orders 04/27/21 15:56 XR toe LT min 2V Stat Vital Signs Vital signs: Vital Signs - 8 hr 04/27/21 15:53 Temperature 97.6 F Pulse Rate 55 L Respiratory Rate 16 Blood Pressure 129/69 Pulse Oximetry 99 MDM - Extremity Injury (Lower) Imaging Data Extremity x-ray #1: Radiologist's Impression: [address] [id number] ReportSigned Patient: Devi Vaca#: [id number]: 1945cct:[id number]/Sex: 75 / FDate of Service: 04/27/21Loc: EDAccession Number: [id number] Procedure: XR toe LT min 2V Ordering Provider: Maria A Jacobo D.O. PROCEDURE: XR TOE LT MIN 2V INDICATIONS: dropped calero on foot TECHNIQUE: 3 views of the 1st and 2nd toe(s) acquired. COMPARISON: None. FINDINGS: Bones: No fractures or dislocations. No suspicious bony lesions. Remote great toe metatarsal osteotomy and bunionectomy. Orthopedic screws are intact with no evidence of hardware failure or loosening. 1st MTP degenerative change. Soft tissues: No suspicious soft tissue densities. IMPRESSION: No evidence of acute fracture or dislocation involving the 1st and 2nd toes of the left foot. Dictated by: Joe Delcid M.D. on 04/27/2021 at 16:24 Approved by: Joe Delcid M.D. on 04/27/2021 at 16:26 MDM Narrative Medical decision making narrative: No fractures noted on the x-ray. She is neurovascularly intact. Does have bruising around this area which I suspect is from the injury that she sustained approximately 1 week ago. No further workup needed here in the emergency department. She was given care instructions and return precautions. She expressed understanding and agreement. Discharge Plan Departure Patient Disposition: Home Clinical Impression: Contusion of toe of left foot Instructions: DI for Contusion Activity Restrictions/Additional Instructions: There were no fractures noted on the x-rays. Do recommend that you keep your foot elevated and also use ice. Things should improve over the next couple days. Return to the emergency department for any new or worsening symptoms Prescriptions: No Action mupirocin 2 % ointment 1 applic TOP BID Qty: 30 RF: 0 calcium acetate(phosphat bind) 667 MG capsule 667 mg PO Q DAY Qty: 0 RF: 0 CHOLECALCIFEROL (VITAMIN D) 2,000 units PO QDAY Qty: 0 RF: 0 Suprep Bowel Prep Kit 17.5-3.13-1.6 gram recon soln 177 ml PO DAILY Qty: 354 RF: 0 estradiol [Vagifem] 10 mcg tablet 10 mcg VAG 2XW Qty: 30 RF: 3 trazodone 100 mg tablet 300 mg PO BEDTIME Qty: 270 RF: 2 atorvastatin 40 mg tablet 40 mg PO BEDTIME Qty: 90 RF: 3 metoprolol succinate 50 mg tablet extended release 24 hr 50 mg PO DAILY Qty: 90 RF: 1 aspirin [Adult Low Dose Aspirin] 81 mg tablet,delayed release (DR/EC) 81 mg PO DAILY RF: 0 tramadol 50 mg tablet 50 mg PO DAILY PRN (Reason: pain) Qty: 30 RF: 5 Referrals: Marlo Sylvester MD [Primary Care Provider] -
[2021-04-27 19:20] VITALS: BP 137/63; PULSE 57; RESP 20; O2SAT 98
== END 2021-04-27 19:25 | disposition home or self-care (01) ==
PROVIDERS: Emergency Provider Emergency Medicine; PCP Student in an Organized Health Care Education/Training Program
DX: S90.112A Contusion of left great toe without damage to nail, initial encounter (principal); W22.8XXA Striking against or struck by other objects, initial encounter
CPT/HCPCS: 73660; 99283

== ENCOUNTER → 2021-06-30 08:30 | Outpatient (CLI) | payer MEDICARE, OTHER, SELFPAY ==
--- NOTE | 2021-06-30 | DI.MG.S_ITS ---
UNILATERAL RIGHT DIGITAL SCREENING MAMMOGRAM 3D/2D WITH CAD: 06/30/2021 CLINICAL: Routine screening. Personal history of left breast cancer. Family history of breast cancer. Routine screening. Comparison is made to exams dated: 06/25/2020 mammogram, 05/24/2019 mammogram, and 05/20/2018 mammogram - [facility]. There are scattered fibroglandular elements in right breast. Current study was also evaluated with a Computer Aided Detection (CAD) system. No significant masses, calcifications, or other findings are seen in the breast. There has been no significant interval change. IMPRESSION: NEGATIVE There is no mammographic evidence of malignancy. A 1 year screening mammogram is recommended. This exam was interpreted at Station ID: [id number]. NOTE: For mammograms, a report in lay terms will be sent to the patient. Approximately 15% of breast malignancies will not be visualized mammographically. In the management of a palpable breast mass, a negative mammogram must not discourage biopsy of a clinically suspicious lesion. Electronically Signed By: Andres gilliam/thor:06/30/2021 10:23:54 letter sent: Normal Exam ACR BI-RADS Category 1: Negative [id number]
== END ==
PROVIDERS: PCP Family Medicine; Referring Provider Student in an Organized Health Care Education/Training Program; Visit Provider Student in an Organized Health Care Education/Training Program
DX: Z12.31 Encounter for screening mammogram for malignant neoplasm of breast (principal); Z85.3 Personal history of malignant neoplasm of breast; Z80.3 Family history of malignant neoplasm of breast
CPT/HCPCS: 77063; 77067

== ENCOUNTER → 2021-07-04 13:08 | Outpatient (CLI) | payer MEDICARE, OTHER, SELFPAY ==
[2021-07-04 15:05] LABS: Add Manual Diff / Slide Review NO; Basophils Absolute Auto 0 /uL (0-100); Basophils Percent Auto 0.8 % (0-2); Eosinophils Absolute Auto 100 /uL (0-450); Eosinophils Percent Auto 1.4 % (2-4); Hemoglobin 12.6 g/dL (12.0-16.0); Lymphocytes Absolute Auto 1600 /uL (1100-4500); Mean Corpuscular Hemoglobin 31.8 PG (26-34); Mean Corpuscular Volume 96.3 fL (80-100); Monocytes Absolute Auto 500 /uL (0-900); Monocytes Percent Auto 9.6 % (3-14); Neutrophils Absolute Auto 3300 /uL (1500-7000); Neutrophils Percent Auto 59.2 % (50-75); Platelet Count 175 X10^3/uL (150-400); Red Blood Cell Count 3.95 X10^6/uL (4.0-5.2); Red Cell Distribution Width 12.7 % (11.6-14.8); White Blood Cell Count 5.7 X10^3/uL (4.5-11.0)
[2021-07-04 15:19] LABS: BUN Creatinine Ratio 20.6 (6-22); Blood Urea Nitrogen 21 mg/dL (7-17); Calcium 10.3 mg/dL (8.4-10.2); Carbon Dioxide 28 mmol/L (22-32); Chloride 102 mmol/L (98-107); Glucose 90 mg/dL (80-110); HEMOLYSIS < 15 (0-50); Potassium 4.8 mmol/L (3.4-5.1); Sodium 139 mmol/L (137-145)
== END ==
PROVIDERS: PCP Family Medicine; Referring Provider Orthopaedic Surgery Orthopaedic Surgery of the Spine; Visit Provider Orthopaedic Surgery Orthopaedic Surgery of the Spine
DX: Z01.818 Encounter for other preprocedural examination (principal); Z01.812 Encounter for preprocedural laboratory examination
CPT/HCPCS: 36415; 80048; 85025; 93005; 93010

== ENCOUNTER → 2021-07-06 15:50 | Outpatient (CLI) | payer MEDICARE, OTHER, SELFPAY ==
--- NOTE | 2021-07-06 15:53 | DI.CT.S_ITS ---
PROCEDURE: CT LUMBAR SPINE WO CON INDICATIONS: Spinal stenosis, lumbar region with neurogenic cla TECHNIQUE: Noncontrast 3 mm thick sections acquired from the T12 level to the sacrum. Sagittal and coronal reformats were constructed. For radiation dose reduction, the following was used: automated exposure control. COMPARISON: None. FINDINGS: Image quality: Excellent. Bones: Normal bone mineralization. Vertebral body height is maintained. Degenerative grade 1 anterior spondylolisthesis L4 over L5 noted. No paraspinal mass lesion. T12-L1: Unremarkable L1-L2: Unremarkable L2-L3: Mild disc space narrowing and circumferential disc bulge results in mild central stenosis with mild bilateral foraminal stenosis. L3-L4: Mild disc space narrowing with circumferential disc bulge, ligamentum flavum laxity and hypertrophic facet joints results in moderate central stenosis. Moderate bilateral foraminal stenosis noted. L4-L5: Moderate disc space narrowing with severe hypertrophic facet joints and ligamentum flavum laxity results in grade 1 anterior spondylolisthesis of L4 over L5. There is severe central stenosis and severe bilateral foraminal stenosis present. L5-S1: Mild disc space narrowing with circumferential disc bulge and hypertrophic facet joints results in mild central and bilateral foraminal stenosis. IMPRESSION: Multilevel degenerative disc disease and arthropathy results in varying degrees of central and foraminal stenosis including severe central and bilateral foraminal stenosis at L4-5. Approved by: Javon Ingram M.D. on 07/06/2021 at 17:12
== END ==
PROVIDERS: PCP Family Medicine; Referring Provider Orthopaedic Surgery Orthopaedic Surgery of the Spine; Visit Provider Orthopaedic Surgery Orthopaedic Surgery of the Spine
DX: M48.062 Spinal stenosis, lumbar region with neurogenic claudication (principal); M48.07 Spinal stenosis, lumbosacral region; M51.36 Other intervertebral disc degeneration, lumbar region; M51.37 Other intervertebral disc degeneration, lumbosacral region; M47.816 Spondylosis without myelopathy or radiculopathy, lumbar region; M47.817 Spondylosis without myelopathy or radiculopathy, lumbosacral region
CPT/HCPCS: 72131

== ENCOUNTER → 2021-07-08 10:07 | Outpatient (CLI) | payer MEDICARE, OTHER, SELFPAY ==
[2021-07-08 12:29] LABS: COVID19 -Nasal RAPID Negative (Negative)
== END ==
PROVIDERS: PCP Family Medicine; Referring Provider Nurse Practitioner; Visit Provider Nurse Practitioner
DX: Z20.822 Contact with and (suspected) exposure to COVID-19 (principal)
CPT/HCPCS: 87635; C9803

== ENCOUNTER 2021-07-11 09:35 | Inpatient (IN) | payer MEDICARE, OTHER, SELFPAY ==
[2021-07-04 13:44] VITALS: BMI 21.4
[2021-07-11] VITALS (17 sets, daily range): BP systolic 102–143; BP diastolic 5–76; PULSE 62–88; RESP 8–17; TEMP 35.9–36.9; O2SAT 91–100; BMI 21.4
[2021-07-11] MEDS: LACTATED RINGERS 1,000 ML 42 ML IV (10:04)
--- NOTE | 2021-07-11 11:30 | PM.PREOP ---
Pre-operative Note COVID-19 COVID-19 status: Negative Result date/Date tested (Pos, Neg/Pending): 07/09/21 Interval Note History & Physical reviewed/Exam performed by Physician: Yes Changes to H&P: No
[2021-07-11] MEDS: CEFAZOLIN 1 GM VIAL 2 GM IV (12:15)
[2021-07-11] MEDS: BUPIVACAINE LIPOSOME 266 MG/20 ML VIAL INJ (12:35)
[2021-07-11] MEDS: BUPIVACAINE 0.25% (PF) VIAL 30 ML INJ (12:37)
[2021-07-11] MEDS: EPINEPHrine 1 MG/ML 0.15 MG IM (12:38)
--- NOTE | 2021-07-11 12:41 | SUR.OPER ---
Prone on spine table, head in foam head support, padded chest and pelvic supports, gel pad at knees, lower legs supported by pillows; nipples, genitalia and toes free of pressure, arms secured on foam padded arm boards at <90 degrees abduction. Tape over blanket at thigh secured to table.
--- NOTE | 2021-07-11 13:38 | PC.NURSE ---
Day shift: Pt not on AC unit at this time ([id number]).
--- NOTE | 2021-07-11 14:00 | DI.RAD.S_ITS ---
PROCEDURE: XR LUMBAR SPINE 2-3V INDICATIONS: L4-5 TLIF TECHNIQUE: 2 fluoroscopic images were submitted. COMPARISON: [facility], , XR LUMBAR SPINE 2-3V, 01/28/2021, 15:30. FINDINGS: 2 fluoroscopic images of the lower lumbar spine demonstrate posterior element fixation hardware and discectomy at L4-5. IMPRESSION: Postsurgical changes of the lumbar spine as detailed above. Dictated by: Miguel Ángel Arana M.D. on 07/11/2021 at 15:17 Approved by: Miguel Ángel Arana M.D. on 07/11/2021 at 15:19
--- NOTE | 2021-07-11 15:06 | PM.OP.1 ---
Operative Date/Time/Diagnoses Date of procedure: 07/11/21 Time of procedure: 12:30 Pre-op diagnosis: 1. L4-5 spdondylolisthesis 2. L4-5 spinal stenosis with radiculopathy Post-op diagnosis: same Procedure & Clinicians Procedure: 1. L4-5 Postero-lateral and posterior interbody fusion 2. L4-5 interbody cage placement. 3. L4-5 decompressive laminectomy with bilateral facetecomies 4. L4-5 Posterior non-segmental instrumentation 5. [place] of bone marrow from iliac crest 6. Utilization of microsurgical technique and operating microscope 7. Robitic assisted navigation surgery Same procedure as scheduled: Yes Indications: Patient has been having chronic back pain and worsening lumbar radiculopathy. Patient failed multiple conservative management with worsening pain weakness and numbness in her lower extremity. Patient has been having difficulty performing activity of daily living. After discussing risks benefits of treatment options, patient elected proceed with surgery. Surgeon: Destiny Rachel Miller Distillery: Lizette Trevizo Click Yes if Unassisted: No Anesthesia Type: General Operative Notes Closure Type: primary Specimen(s): none sent Prosthetic devices, grafts, tissues, transplants, or devices: Globus CREO MIS, Rise cage Estimated Blood Loss (mL): 50 Blood products transfused: none Procedure in detail: Patient was seen in the preoperative area. Risks and benefits of the surgery was discussed with the patient. Informed consent was obtained from the patient and placed in the chart. Surgical site was marked. Patient was taken to the operative room. General anesthesia was administered. Prophylactic antibiotic was given to the patient less than 30 min before the incision was made. Patient was placed into a prone position on the Regino table. Patient's back was then prepped and draped in the sterile fashion. Time-out was performed at this time. After patient was prepped and draped, patient's PSIS was palpated and marked bilaterally. Small 1 cm incision was made over the PSIS for placement of the reference probes. Two trocar was placed into the PSIS 1 on each side. The reference probe was attached to the trocar of the reference apparatus. At this time the C-arm imaging was used to confirm AP and lateral of L4-L5 vertebrae and merged the C-arm imaging using the Phraxis robotic navigation system with the CT of the lumbar spine. After successful merging was completed and confirmed, skin marker was used to fredy out the skin incision using the Phraxis robotic arm. Bilateral incision was made at this time. Pre templated trajectory was used and guided using the Phraxis robotic navigation system for bilateral L4, L5 pedicle screw placement. This was done by using the robotic arm to guide the high-speed bur to make a cortical entry point. Next a drill was placed also using the robotic arm and guided using the navigation system drilling partially through bilateral L4, L5 pedicles. Next L4, L5 pedicle screws it was pre templated and measured was placed onto the power commercial front load driver and inserted into the pedicles bilaterally. After all 4 screws were placed C-arm imaging was taken of both AP and lateral to confirm the placement. Excellent placement of the screws were confirmed and a matched precisely with the pre planned screw placement using the navigation system. MARs retractor was inserted using [employer] guidence. Globus MARS retractors was placed inside the incision and docked onto the L4 lamina. Using microsurgical technique and operating microscope, a L4 laminectomy and L4-5 facetectomy was performed using a Kerrison rongeur. Patient was found have severe lateral recess and neural foramen stenosis which was fully decompressed after the laminectomy facetectomy. More than 75% of the facets were removed during the process of decompression rendering L4-5 level grossly unstable and required a fusion procedure at the same time. The disc space at L4-5 was identified, and a total diskectomy was performed at L4-5 level. The endplates were decorticated using a rasp and shaver. The total diskectomy and decortication was performed at L4-5 level in order to to accomplish a L4-5 fusion. The local bone from the laminectomy and facetectomy was saved for local bone grafting. After the total diskectomy and decortication was completed, Trifecta bone graft material was combined with local bone that was harvested earlier. At this time, a separate skin is incision was made over the iliac crest. A Jamshidi needle was inserted into the iliac crest through a separate skin incision. 5 cc of bone marrow aspiration was obtained through the separate skin incision using a Jamshidi needle from the iliac crest. The bone marrow aspiration was combined with local bone and the Trifecta bone grafting material. The bone grafting material was placed into the L4-5 interbody space along with a expandable cage. The cage was expanded to its maximum height using the torque limiting screwdriver. The disc preparation as well as the cage insertion were also performed under navigation guidance. After the cage was placed, AP and lateral C-arm imaging was taken to confirm placement of the cage and excellent position was confirmed. L3-4 hemilaminectomy was performed on the left side for further decompress the lateral recess and epidural space using microsurgical technique and operative microscope. Appropriate decompression was accomplished using the hemilaminectomy approach. Globus MARS retractor was inserted and docked onto the L4-5 posterolateral gutter on the right side. Using the power drill, posterior-lateral decortication was performed at L4-5 level until bleeding cortical bone was identified. The remaining bone grafting material was placed into the L4-5 posterior lateral gutter he order to accomplish posterolateral fusion at the L4-5 level. At this time the tulips were attached to the L4-L5 pedicle screw shanks. After measuring the length of the rods, they were inserted into the tulips of the pedicle screws and locked in place using locking caps and torque limiting screwdriver bilaterally. Total 4 caps and 2 titanium rods was used in order to complete the posterior instrumentation construct. Caps were threaded down and reducing the spondylolisthesis. Hardware used was able to maintain the excellent reduction accomplished using a threat to do stairs. After all the hardware was placed, and confirmed with AP and lateral C-arm imaging, the wound was then irrigated with sterile normal saline and packed with Ray-Amaury gauze for 3 min to accomplish hemostasis. After the gauze was removed the deep fascia was closed with #1 Vicryl suture. The subcutaneous layer was closed with 2-0 Vicryl. The skin was closed with skin renard. Patient tolerated the procedure well. There were no complications. Neuro monitoring system was used to monitor patient's neurologic status throughout entire procedure. There was no disturbance of the neural monitoring signals throughout the case. Complications: none Post-operative Condition: stable Disposition: PACU Plan for aftercare: Admit to inpatient hospital
[2021-07-11] MEDS: HYDROMORPHONE 2 MG INJ IV ×2 (15:27→15:41)
[2021-07-11] MEDS: ONDANSETRON 4 MG/2 ML INJ IV (15:28)
--- NOTE | 2021-07-11 15:29 | SUR.PHASEI ---
Patient to PACU in bed with Dr Vo and Lesli PRINGLE after general anesthesia breathing unassisted on room air.
[2021-07-11] MEDS: OXYCODONE IR 5 MG TABLET PO (15:52)
[2021-07-11] MEDS: hydrOXYzine 50 MG/ML INJ 25 MG IM (15:53)
[2021-07-11] MEDS: ACETAMINOPHEN 325 MG TABLET 975 MG PO (15:53)
--- NOTE | 2021-07-11 16:34 | SUR.PHASEI ---
Patent transferred to room 208 in bed with this Rn on 2L of oxygen. SBAR report at bedside given to Mesfin Roberts.
[2021-07-11] MEDS: SODIUM CHLORIDE 0.9% 1,000 ML 100 ML IV (16:45)
[2021-07-11] MEDS: HYDROMORPHONE 0.5 MG INJ 0.2 MG IV (17:45)
[2021-07-11] MEDS: hydrOXYzine pamoate 25 MG CAPSULE PO (19:05)
[2021-07-11] MEDS: OXYCODONE IR 5 MG TABLET 10 MG PO ×2 (19:05→21:24)
[2021-07-11] MEDS: ATORVASTATIN 20 MG TABLET 40 MG PO (21:24)
[2021-07-11] MEDS: SENNOSIDES 8.6 MG TABLET 17.2 MG PO (21:24)
[2021-07-11] MEDS: TRAZODONE 100 MG TABLET 300 MG PO (21:24)
[2021-07-11] MEDS: DOCUSATE 100 MG CAPSULE PO (21:24)
[2021-07-11] MEDS: METOPROLOL ER 50 MG TABLET PO (21:24)
[2021-07-11] MEDS: CEFAZOLIN 1 GM VIAL IV (21:24)
[2021-07-12] VITALS: BP 118/67; PULSE 69; RESP 18; TEMP 36.2; O2SAT 95
[2021-07-12] MEDS: OXYCODONE IR 5 MG TABLET 10 MG PO ×3 (00:44→11:01)
[2021-07-12] MEDS: ACETAMINOPHEN 325 MG TABLET 650 MG PO (03:06)
[2021-07-12] MEDS: hydrOXYzine pamoate 25 MG CAPSULE PO ×2 (03:06→09:01)
[2021-07-12] MEDS: CEFAZOLIN 1 GM VIAL IV (03:06)
[2021-07-12 03:42] VITALS: BP 117/65; PULSE 69; RESP 16; TEMP 36.6; O2SAT 96
--- NOTE | 2021-07-12 07:54 | P.PN_ITS ---
Subjective Subjective Date Patient Seen: 07/12/21 Time Patient Seen: 07:54 Interval history: Pain is moderate. Denies fever chills. No nausea vomiting. Exam Vital Signs (past 8 hours): - 07/12/21 00:00 07/12/21 03:42 Temperature 97.2 F L 97.8 F Pulse Rate 69 69 Respiratory Rate 18 16 Blood Pressure 118/67 117/65 Pulse Oximetry 95 96 Oxygen Delivery Method Nasal Cannula Oxygen Flow Rate 1 Narrative Exam Narrative: Pleasant 75-year-old female resting comfortably in bed in no apparent distress. Scant drainage on the dressing otherwise intact. Motor functions intact distal bilateral lower extremities. Both legs are warm and dry. Sensation is grossly intact to light touch bilateral lower extremities. [facility] Medical History Afib (~2019) Breast cancer, left (11/1995) Degenerative disc disease Depression Facet arthropathy, lumbar HLD (hyperlipidemia) HTN (hypertension) IBS (irritable bowel syndrome) Ingrown toenail of left foot with infection Loose stools Lymphedema (09/01/02) Palpitations Surgical History History of bunionectomy of left great toe History of right knee joint replacement (~2017) History of total mastectomy Hx of arthroscopy of right knee Hx of bilateral cataract extraction Status post hysterectomy with oophorectomy Family History Brother Age: 76 Cancer Hypertension Father Congestive heart failure Stroke Mother Breast CA Alcoholism Hypertension Social History household members: significant other Smoking Status: Former smoker alcohol intake: current substance use type: marijuana Assessment & Plan Post-op Postoperative Procedures: Procedures Operation Date: 07/11/21 11:20 Actual Procedure Side Surgeon p L4-5 TLIF with robotic assist Destiny Rachel MD Postoperative day: 1 Postoperative status narrative: Patient progressing as expected Postoperative plan narrative: Mobilize with physical therapy. Patient was little bit dizzy getting up to use the restroom. Limit bending, twisting, lifting. Disposition home today or tomorrow.
[2021-07-12 08:00] VITALS: BP 91/58; PULSE 64; RESP 16; TEMP 36.6; O2SAT 93
[2021-07-12] MEDS: DOCUSATE 100 MG CAPSULE PO (09:01)
[2021-07-12] MEDS: CHOLECALCIFEROL (VITAMIN D3) 1,000 UNIT TABLET 2000 UNIT PO (09:03)
[2021-07-12] MEDS: CALCIUM ACETATE 667 MG CAPSULE PO (09:03)
--- NOTE | 2021-07-12 10:03 | PT.IIE ---
Current Diagnoses Spondylolisthesis, lumbar region (07/11/21) Spinal stenosis, lumbar region with neurogenic claudication (07/11/21) Surgery Performed Operation Date: 07/11/21 11:20 Actual Procedures p L4-5 TLIF with robotic assist - Desitny Rachel MD Surgical History (Last Reviewed 07/12/21 @ 12:00 by Gregg Jo PA-C) History of total mastectomy Status post hysterectomy with oophorectomy Medical History (Last Reviewed 07/12/21 @ 12:00 by Gregg Jo PA-C) Afib (~2019) Breast cancer, left (11/1995) Degenerative disc disease Depression Facet arthropathy, lumbar HLD (hyperlipidemia) HTN (hypertension) IBS (irritable bowel syndrome) Ingrown toenail of left foot with infection Loose stools Lymphedema (09/01/02) Palpitations Physical Therapy Inpatient Evaluation/Re-Eval M1 PT/OT-IP Prior Functional Status Start: 07/12/21 12:02 Freq: NEEDED Status: Active Protocol: Document 07/12/21 11:32 [facility] (Rec: 07/12/21 12:24 [facility] [id number]) Medical Review Prior Functional Status Communication Independent. Mobility and Gait Pt did not use a device, but was in pain which limited her activity tolerance. Activities of Daily Living and IADL's Pt states was independent with all ADL's and IADL's but was in pain. Social History Household Members significant other Living Arrangements House Number of Floors (Floors) One Floor Number of Stairs To Enter/Railing? 3 steps with no rails. Home Environment Standard Height Toilet,Walk in Shower Home Equipment Raised Toilet Seat Without Armrests,Grab Bars In Shower Additional Social History Comment Pt states her Life Partner will be getting a shower chair , RTS, and FWW for her. M1 PT/OT-IP Prior Functional Status Start: 07/12/21 12:18 Freq: NEEDED Status: Active Protocol: Document 07/12/21 10:03 AB (Rec: 07/12/21 12:31 AB [id number]) Medical Review Prior Functional Status Medical History Reviewed Yes Communication able to make needs known Mobility and Gait pt stated that she is independent with all mobilities and ambulation without AD Social History Household Members significant other Living Arrangements House Number of Floors (Floors) Two Floors Number of Stairs To Enter/Railing? pt will stay on main level of the house 3 steps withotu rails to enter the house Home Environment High Toilet,Walk in Shower Home Equipment Grab Bars Near Toilet,Grab Bars In Shower Additional Social History Comment pt has walking sticks M2 PT-IP Current Condition Start: 07/12/21 12:18 Freq: NEEDED Status: Active Protocol: Document 07/12/21 10:03 AB (Rec: 07/12/21 12:31 AB [email or web address]) Physical Therapy Current Condition Current Condition Evaluation Date 07/12/21 Treatment Diagnosis s/p L4-5 TLIF; difficulty in walkinig Onset Date 07/11/21 M3 PT-IP Subjective Start: 07/12/21 12:18 Freq: NEEDED Status: Active Protocol: Document 07/12/21 10:03 AB (Rec: 07/12/21 12:31 AB [email or web address]) Subjective Physical Therapy Visit Type Type Initial Evaluation Visit Start Time 10:03 Visit Stop Time 10:55 Total Visit Minutes 52 Number of STITCHER FEEDER Visits 0 Physical Therapy Visit Comments Patient Comments agreeable to do PT Therapy Pain Assessment Pain When Pain Assessed At Rest Pain Present Pain Present Pain Reported Location Back Intensity 5 Scale Used increases to 7/10 with movement Pain Management Techniques Distraction,Modification of Treatment,Re-positioning, Timing of Activity with Medications M4 PT-IP Mobility and Gait Start: 07/12/21 12:18 Freq: NEEDED Status: Active Protocol: Document 07/12/21 10:03 AB (Rec: 07/12/21 12:31 AB [id number]) PT-Bed Mobility Assessment Rolling Type of Rolling Log Rolling Level of Assist Standby Assistance Supine to Sit Supine to Sit Standby Assistance Sit to Supine Sit to Supine Standby Assistance PT-Transfer Assessment Sit to and From Stand Sit to and from Stand Standby Assistance,1 Person Assistance,Use of Upper Extremities Equipment Transfer Assistive Device Gait Belt,Front Wheeled Walker Orthotic/Prosthetic Devices or Brace: No Transfers Transfer Destination Toilet Transfer Technique ambulated using FWW Transfer Ability Level of Assist Standby Assistance,Use of Upper Extremities Comments Mobility Comments educated on back precautions and log roll bed mobility. pt completed log roll supine<>sit initially requires cues but repeated again and able to complete without cues SBA. pt was able to sit on EOB SBA. completed sit to stand SBA and ambulated to the toilet 25 ft using FWW SBA. completed sit to stand from the toilet SBA and ambulated to the sink using FWW sBA. ambulated to chair SBA using FWW. No c/o dizziness. BP: 108/86 to 123/ 78. pt completed up/down step stool using SPC CGA and cues. repeated x 4 reps. pt ambulated out in the hallway using FWW 250 ft SBA. agreed to sit up on chair. positioned on chair. call light and table placed within reach. Gait Assessment Gait Gait Assistance Required: Standby Assistance Distance (Feet) 250 Able to Maintain Weight Bearing Status Yes During Gait Assistive Devices Assistive Device Gait Belt,Front Wheeled Walker Orthotic/Prosthetic Devices or Brace: No Gait Deviations General Gait Pattern Decreased Stride Length, Decreased Feet Clearance Factors Limiting Gait Function Factors Limiting Gait Function Decreased Activity Tolerance, Decreased Strength,Difficulty Following Directions,Pain,Poor Balance,Poor Safety Awareness Comments Gait Comments pls refer to mobility section for details Stair Climbing Assessment Evaluation Level of Assist On Stairs Contact Guard Assistance Devices Stair Climbing Assistive Devices Straight Cane Technique/Endurance Stair Climbing Direction Ascend and Descend Stair Climbing Technique Step to Step Number of Steps Climbed 1 Query Text: Stair Climbing Set # Repetitions (reps) 4 PT-Balance Assessment Sitting Balance and Reactions Static Sitting Balance Ability Normal Dynamic Sitting Balance Ability Good Standing Balance and Reactions Static Standing Balance Ability Good Dynamic Standing Balance Ability Fair Device Used FWW M5 PT-IP Objective Assessments Start: 07/12/21 12:18 Freq: NEEDED Status: Active Protocol: Document 07/12/21 10:03 AB (Rec: 07/12/21 12:31 [email or web address]) Orientation Orientation/Cognition Level of Alertness Alert Orientation Name,Place,Situation Safety Awareness Decreased Safety Awareness Memory Description Short Term Impaired Gross Range of Motion Lower Extremity ROM Assessment Within Functional Limits Strength Lower Extremity Strength Hip 4-/5 Knee 4-/5 Sensation Assessment Sensation Gross Sensation WNL Muscle Tone Muscle Tone WNL Yes M6 PT-IP Treatment Start: 07/12/21 12:18 Freq: NEEDED Status: Active Protocol: Document 07/12/21 10:03 AB (Rec: 07/12/21 12:31 [email or web address]) Physical Therapy Treatment Education Education Provided Precautions,Weight Bearing Status,Post-Op Packet,Safety M7 PT-IP Assessment and Plan Start: 07/12/21 12:18 Freq: NEEDED Status: Active Protocol: Document 07/12/21 10:03 AB (Rec: 07/12/21 12:31 AB [id number]) PT Summary Assessment and Plan Potential Rehabilitation Potential Good Status of Condition at Evaluation Stable Summary Impairments Pain,ROM,Strength,Balance, Coordination,Sensation,Tone, Cognition,Bed Mobility, Transfers,Gait,Activity Tolerance Assessment Summary pt requiring SBA to CGA with mobility. pt plans to go home and has her significant other to assist her. pt got a FWW from soroptomist today and significant other will crop picker FWW. pt may go home when medically stable. Goals Bed Mobility Goal Independent Transfer Goal Independent,Front Wheeled Walker Gait Goal Independent,Front Wheel Walker Gait Distance 300 Other Goals up/down 3 steps walking stick mod I Days to Meet Goals 3 Frequency of Treatment Frequency Of Treatment Twice a Day Treatment Plan Physical Therapy Treatment Plan Bed Mobility Training,Transfer Training,Gait Training, Therapeutic Exercise,Balance Retraining,Post Op Education, Discharge Planning,Hot or Cold Pack,Neuromuscular Re-ed, Coordination Retraining,Manual Therapy Precautions Lumbar Precautions Log Roll,No Twisting,Limit Bending,Lifting Restriction of 10 lbs,Gait Belt above Incisional Area Recommendations To Nursing Amount of Assist Needed Standby Assistance Discharge Recommendations PT Discharge Recommendations Home with Assistance Transportation Needs at Discharge Private Vehicle
--- NOTE | 2021-07-12 10:32 | CM.DANOTE ---
DCP: Case received, EMR reviewed and met with patient. Introduced self and role. Was able to obtain information regarding patient's baseline activity status prior to her surgery. DCP assessment completed with information currently available. Patient is a 75 year old female who admitted yesterday morning to the care of the orthopedic team. PCP: Dr. Garcia. Payer: confirmed: Medicare/[facility]. Patient came to the hospital via private vehicle for a surgical procedure. Patient had L4-5 postero-lateral and posterior interbody fusion. She has history of spinal stenosis/spondyloisthesis. Met with patient in her room. She is alert and oriented. She resides outside of [place] with her spouse, Fernando. She has had surgeries before. She is independent at her baseline, and is active, she does hiking. She confirmed that her will be able to assist her when she goes home. P: DCP to continue to follow. Patient should be able to go home when she is medically stable and cleared by the therapy team. Radha Coronado RN/Bore Mill [employer] Discharge Planning/Care Management CM Discharge Assessment Start: 07/12/21 10:30 Freq: Status: Active Protocol: Document 07/12/21 10:30 (Rec: 07/12/21 10:31 [id number]) Discharge Planning Assessment Assigned Corporate Strategist Radha Coronado RN/Bore Mill [employer] Advance Directives? Yes Advance Directives on File Yes History Provided By Patient,Medical Record Prior Living Arrangements House Household Members significant other Type of transporation used prior to Drives own vehicle admit Independent with ADL's Yes Is patient alert and oriented? Yes Caregiver for Another No Barriers to Discharge No Discharge Plan Home Transportation Arrangement Spouse Referrals Initiated None needed Whiteboard Updated in Patient Room with Yes name and ext. # of Corporate Strategist Review Status In Process Next Review Type Continued Stay Review Pre-Anesthesia Assessment Start: 07/04/21 13:44 Freq: Status: Complete Protocol: Document 07/04/21 13:44 [facility] (Rec: 07/04/21 14:34 [facility] [id number]) Pre-Anesthesia Assessment Preferred Name Devi Islas Patient Information Reviewed Via Phone Assessment Assessment Completed With Patient Diagnostic Results BMP/CMP,CBC,EKG Comment Labs/EKG @ [facility] 07/04/21, COVID screen @ [facility] 07/08/21 Primary Care Provider Juan A Garcia Seen Specialist in Last 12 Months Yes Specialist Seen Orthopedist Primary Language Citizen [place] Preferred Language Citizen [place] Hand Twister Required No Height 5 ft 4 in Weight 125 lb Body Mass Index (BMI) 21.4 Hearing Ability Normal Visual Assist Glasses Dentition Type Teeth, Natural Present Barriers to Learning None Hx Anesthesia Reactions No Hx Family Anesthesia Reaction No Hx Malignant Hyperthermia No Hx Blood Transfusions Yes: Approx 50 years ago r/t PID Hx Blood Transfusion Reaction No Anesthesia Review Requested No alcohol intake current alcohol intake frequency 0-2 drinks per day Smoking Status Former smoker how long ago did patient quit smoking Quit age [age] Substance Use Type marijuana Comment Advised not to smoke marijuana 24 hours prior Pain Present Pain Reported Musculoskeletal Symptoms Back Pain,Muscle Cramps,Muscle Spasms,Muscle Weakness History of Falling (Recent or History of No ) Patient is completely paralyzed or No completely immobile Mental Status Oriented to own ability Is patient on oxygen? No Does patient have NULL/SOB No Hx Sleep Apnea No CPAP/BIPAP use not prescribed Currently Taking a Beta Aure Yes: Metroprolol Hx Chest Pain No Hx SOB No Hx Syncope or Dizziness No Anti-Coagulant Therapy No Has a Generation Technologist No Cardiac Testing No Hx Pacemaker/ICD No Pacemaker Rep Required? No Cardiac Clearance Received Not Applicable Diet Type At Home Regular dysphagia No Gastrointestinal Symptoms Bloating,Constipation,Cramping ,Diarrhea Urinary Catheter Present No Hx Urinary Self Catheterization No Diabetes No Patient No Lactating No Hx Drug Resistant Organism No Presence of External or Internal Medical Yes: Right knee, bilat IOLs Devices Have you had any close contact with No someone diagnosed with COVID-19? Received a COVID vaccine? Yes Received all doses? Yes Marital Status Lives With significant other Prior Living Arrangements House Support System Significant Other Does the Patient Have Assistance After Yes Surgery Patient Discharge Plan Description Return Home Comment Pt advised 1 day length of stay per surgeon Feels Safe in Current Environment Yes Been Physically Hurt or Threatened By a No Person in Current Environment Do you have thoughts of harming yourself None or others? Are you currently considering suicide? No Do you have a plan to hurt yourself or No Plan others? Do You Have Any Spiritual Beliefs That No May Affect Your HC Choices? Do You Have Any Cultural Practices That No May Affect Your HC Choices? Comment Pantheism Who Can We Speak to About Patient's Care Family, friends Identifying Code for Release of Patient Declines to issue Information Health Care Proxy/Next of Kin Serene (daughter) Health Care Proxy Emergency Contact Name Prudencio Giang (S.O.) Emergency Contact Advance Directives? Yes Power of Advisor To Command In Combat Yes Power of Advisor To Command In Combat Name Ze Vaca brother Power of Advisor To Command In Combat PAC Instructions Durable medical equipment, Medications to take/avoid, Nasal antibiotic,No ETOH/ petroleum product on skin DOS, NPO,Post-op transportation, Sturdy shoes/comfortable clothes,Do not bring valuables and remove jewelry
[2021-07-12 11:37] VITALS: BP 93/55; PULSE 59; RESP 16; TEMP 36.5; O2SAT 94
--- NOTE | 2021-07-12 11:58 | OT.IP.EVAL ---
Current Diagnoses Spondylolisthesis, lumbar region (07/11/21) Spinal stenosis, lumbar region with neurogenic claudication (07/11/21) Surgery Performed Operation Date: 07/11/21 11:20 Actual Procedures p L4-5 TLIF with robotic assist - Destiny Rachel MD Past Medical History (Last Reviewed 07/12/21 @ 12:00 by Gregg Jo PA-C) Afib (~2019) Breast cancer, left (11/1995) Degenerative disc disease Depression Facet arthropathy, lumbar History of bunionectomy of left great toe History of right knee joint replacement (~2018) HLD (hyperlipidemia) HTN (hypertension) Hx of arthroscopy of right knee Hx of bilateral cataract extraction IBS (irritable bowel syndrome) Ingrown toenail of left foot with infection Loose stools Lymphedema (09/01/02) Palpitations Surgical History (Last Reviewed 07/12/21 @ 12:00 by Gregg Jo PA-C) History of bunionectomy of left great toe History of right knee joint replacement (~2017) History of total mastectomy Hx of arthroscopy of right knee Hx of bilateral cataract extraction Status post hysterectomy with oophorectomy Occupational Therapy Inpatient Evaluation/Re-Eval M1 PT/OT-IP Prior Functional Status Start: 07/12/21 12:02 Freq: NEEDED Status: Active Protocol: Document 07/12/21 11:32 [facility] (Rec: 07/12/21 12:24 [facility] [id number]) Medical Review Prior Functional Status Communication Independent. Mobility and Gait Pt did not use a device, but was in pain which limited her activity tolerance. Activities of Daily Living and IADL's Pt states was independent with all ADL's and IADL's but was in pain. Social History Household Members significant other Living Arrangements House Number of Floors (Floors) One Floor Number of Stairs To Enter/Railing? 3 steps with no rails. Home Environment Standard Height Toilet,Walk in Shower Home Equipment Raised Toilet Seat Without Armrests,Grab Bars In Shower Additional Social History Comment Pt states her Life Partner will be getting a shower chair , RTS, and FWW for her. M2 OT-IP Current Condition Start: 07/12/21 12:02 Freq: Status: Active Protocol: Document 07/12/21 11:32 [facility] (Rec: 07/12/21 12:24 [facility] [id number]) Occupational Therapy Current Condition Current Condition Evaluation Date 07/12/21 Treatment Diagnosis S/p L4-5 TLIF Diagnosis Onset Date 07/11/21 Post Operative Precautions Lumbar Precautions Log Roll,No Twisting,Limit Bending,Lifting Restriction of 10 lbs,Gait Belt above Incisional Area M3 OT- IP Subjective and Pain Start: 07/12/21 12:02 Freq: Status: Active Protocol: Document 07/12/21 11:32 [facility] (Rec: 07/12/21 12:24 [facility] [id number]) OT- Subjective Occupational Therapy Visit Type Type Initial Evaluation Visit Start Time 11:32 Visit Stop Time 11:58 Total Visit Minutes 26 Occupational Therapy Visit Comments Patient Comments Pt agreed to get up and get dressed for OT session. Patient/Caregiver Goals TO go home. OT Pain Assessment Pain When Pain Assessed During Mobility Pain Present Pain Present Pain Reported Location Back Intensity 7 Scale Used Numeric (0 - 10) M4 OT- IP ADL's Start: 07/12/21 12:02 Freq: Status: Active Protocol: Document 07/12/21 11:32 [facility] (Rec: 07/12/21 12:24 [facility] [id number]) OT [id number] General Evaluation Self-Feeding Ability Independent OT ADL-Grooming Comments OT Grooming Comments Not performed, no issued noted . OT ADL-Oral Care Comments Oral Care Comments Educated to hinge at her hips to spit or spit into a cup to best follow her back precautions. OT ADL-Dressing General Eval Upper Body Dressing Ability Independent Lower Body Dressing Ability Standby Assistance Comments OT Dressing Comments Pt able to comfortably cross her legs in order to do her LB dressing needs. Able to educated pt on use of cold roll operator but pt states will not need one or that her Life Partner can assist her. OT ADL-Toileting Comments OT Toileting Comments Pt able to simulate wiping after a bowel movement and able to lean to the left and wipe appropriately and follow all her back precautions with good safety. OT ADL-Bathing Comments OT Bathing Comments Pt states to shower at home. Educated not to get her dressing wet and best to cover it with Press n Seal or other products like that. M5 OT- IP IADL's Start: 07/12/21 12:02 Freq: Status: Active Protocol: Document 07/12/21 11:32 [facility] (Rec: 07/12/21 12:24 [facility] [id number]) OT-Instrumental Activities of Daily Living Home Safety Awareness Home Safety Comments Pt mainly needing cues to slow down and take her time to be able to incorporate her back precautions. Medication Management Medication Management Comments Pt's Life Partner will be home to assist pt for all needs as needed. M6 OT- IP Functional Cognition Start: 07/12/21 12:02 Freq: Status: Active Protocol: Document 07/12/21 11:32 [facility] (Rec: 07/12/21 12:24 [facility] [id number]) Cognitive Factors Limiting Selfcare Function Cognitive Ability Level of Alertness Alert Patient Orientation Name,Age,Birthday,Month,Date, Year,Day of Week,Place, Situation Attention Span Ability Capable of Focused Attention, Capable of Sustained Attention Ability to Follow Commands Able to Follow Multi-Step Commands Memory Description No Deficits Noted Safety Awareness Decreased Ability to Apply Precautions,Underestimates Need for Assistance Cognitive Comments Cognitive Assessment Comments Pt needing reminders to slow down and take her time to be able to incorporate her back precautions. Pt tends to pull up into long sitting versus do log rolling. OT- Vision and Hearing OT- Hearing Assessment OT- Hearing Assessment WFL OT- Vision Assessment Visual Acuity Glasses For Reading M7 OT- IP Mobility and Balance Start: 07/12/21 12:02 Freq: Status: Active Protocol: Document 07/12/21 11:32 [facility] (Rec: 07/12/21 12:24 [facility] [id number]) OT- Bed Mobility Assessment Rolling Type of Rolling Roll to Left Level of Assistance Standby Assistance Supine to Sit Supine to Sit Assist Standby Assistance Sit to Supine Sit to Supine Assist Standby Assistance Scooting Scooting to Edge of Bed Standby Assistance OT-Transfer Assessment Sit to and From Stand Sit to and from Stand Standby Assistance Transfers Transfer Ability Standby Assistance Technique Transfer Destination Bed,Chair Transfer Technique Stand Step Pivot Devices Transfer Assistive Devices Gait Belt,Front Wheeled Walker Comments Mobility Comments SBA with FWW. OT- Balance Assessment Sitting Balance and Reactions Static Sitting Balance Ability Normal Dynamic Sitting Balance Ability Normal Standing Balance and Reactions Static Standing Balance Ability Good Dynamic Standing Balance Ability Fair M8 OT- IP Objective Assessments Start: 07/12/21 12:02 Freq: Status: Active Protocol: Document 07/12/21 11:32 [facility] (Rec: 07/12/21 12:24 [facility] [id number]) OT Gross Range of Motion Upper Extremity Range of Motion Assessment Within Functional Limits OT-Muscle Tone Assessment Muscle Tone WNL Yes M9 OT- IP Assessment and Plan Start: 07/12/21 12:02 Freq: Status: Active Protocol: Document 07/12/21 11:32 [facility] (Rec: 07/12/21 12:24 [facility] [id number]) OT Summary Assessment and Plan Potential Rehabilitation Potential Excellent Analytic Complexity at Evaluation Low Summary OT Impairments Pain,Functional Mobility, Bathing Progress Towards Goals Progressing Toward Goals Assessment Summary Pt low complexity and doing well main barrier is steps and needing cues to slow down and incorporate her back precautions. Pt looking to go home today with assist from her Life Partner. Pt's Life Partner looking to get her a FWW, RTS, and shower chair for home use. Goals Dressing Goal Independent Toileting Goal Independent Bathing Goal Independent Toilet Transfer Goal Independent Shower Transfer Goal Independent Patient/Caregiver Education Goal Demonstrate Post-Op Precautions Days to Meet Goals 1 Frequency of Treatment Frequency Of Treatment Once a Day Treatment Plan OT Treatment Plan ADL Training,Functional Mobility,Patient/Family Education,Discharge Planning Other Treatment Recommendations and Next shower if still here Treatment Focus Discharge Recommendations OT Discharge Recommendations Home with Assistance Home Equipment Needs fww, RTS, shower chair Transportation Needs at Discharge Private Vehicle
--- NOTE | 2021-07-12 11:59 | PM.DS.1 ---
History of Present Illness History of Present Illness Date Patient Seen: 07/12/21 Time Patient Seen: 11:59 Chief complaint: Low back pain Narrative: See progress note Discharge Providers Provider Date of admission: 07/11/21 09:35 Discharge Date: 07/12/21 Primary care physician: Juan A Garcia MD Consults: 07/11/21 16:14 Consult to Occupational Therapy Evaluate & Treat Comment: Physician Instructions: Evaluate and treat Consult to Physical Therapy Evaluate & Treat Comment: Physician Instructions: Evaluate and Treat Discharge provider: Gregg Jo PA-C Summary Hospital Course Discharge Diagnosis: 1. L4-5 spdondylolisthesis 2. L4-5 spinal stenosis with radiculopathy Hospital Course: 1. L4-5 Postero-lateral and posterior interbody fusion 2. L4-5 interbody cage placement. 3. L4-5 decompressive laminectomy with bilateral facetecomies 4. L4-5 Posterior non-segmental instrumentation 5. Hensel of bone marrow from iliac crest 6. Utilization of microsurgical technique and operating microscope 7. Robitic assisted navigation surgery Same procedure as scheduled: Yes Indications: Patient has been having chronic back pain and worsening lumbar radiculopathy. Patient failed multiple conservative management with worsening pain weakness and numbness in her lower extremity.? Patient has been having difficulty performing activity of daily living.? After discussing risks benefits of treatment options, patient elected proceed with surgery. Surgeon: Destiny Rachel Fermenter Operator: Lizette Trevizo Click Yes if Unassisted: No Anesthesia Type: General Operative Notes Closure Type: primary Specimen(s): none sent Prosthetic devices, grafts, tissues, transplants, or devices: Globus CREO MIS, Rise cage Estimated Blood Loss (mL): 50 Blood products transfused: none Patient admitted to the hospital for the above-mentioned procedure. Patient consented to the same. Patient taken to the operating room on July 11, 2021. Patient back in her room recovering well as in stable condition. Patient will be discharged home today in stable condition. Exam Vital Signs (past 8 hours): - 07/12/21 08:00 07/12/21 11:37 Temperature 97.8 F 97.7 F Pulse Rate 64 59 L Respiratory Rate 16 16 Blood Pressure 91/58 L 93/55 L Pulse Oximetry 93 94 Oxygen Delivery Method Nasal Cannula Oxygen Flow Rate 0 Narrative Exam Narrative: See progress note [facility] Medical History Afib (~2019) Breast cancer, left (11/1995) Degenerative disc disease Depression Facet arthropathy, lumbar HLD (hyperlipidemia) HTN (hypertension) IBS (irritable bowel syndrome) Ingrown toenail of left foot with infection Loose stools Lymphedema (09/01/02) Palpitations Surgical History History of bunionectomy of left great toe History of right knee joint replacement (~2018) History of total mastectomy Hx of arthroscopy of right knee Hx of bilateral cataract extraction Status post hysterectomy with oophorectomy Family History Brother Age: 76 Cancer Hypertension Father Congestive heart failure Stroke Mother Breast CA Alcoholism Hypertension Social History household members: significant other Smoking Status: Former smoker alcohol intake: current substance use type: marijuana Discharge Assessment & Plan Assessment and Plan Assessment: Progressing as expected Plan of Treatment: Discharge home in stable condition Discharge Plan Discharge Plan Patient Disposition: Home Discharge orders & Medications Prescriptions: New acetaminophen 325 mg Tablet 650 mg PO Q6HR PRN (Reason: Pain, Mild (1-3)) Qty: 60 RF: 0 docusate sodium 100 mg Capsule 100 mg PO BID Qty: 20 RF: 0 oxycodone 5 mg Tablet 10 mg PO Q3HR PRN (Reason: Pain, Severe (7-10)) Qty: 60 RF: 0 hydroxyzine pamoate 25 mg Capsule 25 mg PO Q4HR PRN (Reason: Nausea And Vomiting) Qty: 30 RF: 0 Continued calcium acetate(phosphat bind) 667 MG capsule 667 mg PO Q DAY Qty: 0 RF: 0 CHOLECALCIFEROL (VITAMIN D) 2,000 units PO QDAY Qty: 0 RF: 0 estradiol [Vagifem] 10 mcg tablet 10 mcg VAG 2XW Qty: 30 RF: 3 atorvastatin 40 mg tablet 40 mg PO BEDTIME Qty: 90 RF: 3 trazodone 100 mg tablet 300 mg PO BEDTIME Qty: 90 RF: 0 tramadol 50 mg tablet 50 mg PO DAILY PRN (Reason: pain) Qty: 30 RF: 5 metoprolol succinate 50 mg tablet extended release 24 hr 50 mg PO BEDTIME RF: 0 Discontinued aspirin [Adult Low Dose Aspirin] 81 mg tablet,delayed release (DR/EC) 81 mg PO DAILY RF: 0 ibuprofen 200 mg Tablet 400 mg PO Q6H PRN (Reason: Pain) RF: 0 Follow up/Referrals: Juan A Garcia MD [Primary Care Provider] - Destiny Rachel MD [Physician] - (2 weeks) Diet/Activity/Treatments Diet: Diet as Tolerated Activity: Limit bending, twisting, lifting Cold/Heat Therapy: Apply ice as needed Skin/Wound/Dressing Care Report to your healthcare provider any signs of infection, such as:: chills, fever, increased pain, unusual drainage and unusual redness Dressing: Keep dressing clean and dry Visit Report/Discharge Packet Instructions: DI for Heart Failure, DI for Prescription Opioid Use, DI for Transforaminal Lumbar Interbody Fusion Stand Alone Forms: Surgery Discharge Discharge Data Primary Care Provider: Juan A Garcia
--- NOTE | 2021-07-12 12:21 | PC.NURSE ---
Day shift: Dressing changed to Coversite prior to d/c per ELENA Jo. The 4 op-sites are well approximated w/ no s/s of infection. Pt tolerated the dressing change well.
--- NOTE | 2021-07-12 13:31 | CM.DANOTE ---
IV access removed. Pain controlled via MAR. Patient belongings accounted for and given to patient's partner. Discharge information and education provided to patient and patient's spouse. All documents covered and signed. All questions answered. Transported to patient's partner's car via ambulance by PINO Rojas.
== END 2021-07-12 13:35 | disposition home or self-care (01) | DRG 455 ==
LOC: OR 09:37 → AC 09:39
PROVIDERS: Admitting Provider Orthopaedic Surgery Orthopaedic Surgery of the Spine; PCP Family Medicine; Referring Provider Orthopaedic Surgery Orthopaedic Surgery of the Spine; Visit Provider Orthopaedic Surgery Orthopaedic Surgery of the Spine
PROC: 0SG00AJ Fusion of Lumbar Vertebral Joint with Interbody Fusion Device, Posterior Approach, Anterior Column, Open Approach (ICD-10-PCS; principal; 2021-07-11 11:20)
DX: M43.16 Spondylolisthesis, lumbar region (principal); M48.062 Spinal stenosis, lumbar region with neurogenic claudication; E78.5 Hyperlipidemia, unspecified; I10 Essential (primary) hypertension; F32.A Depression, unspecified; Z20.822 Contact with and (suspected) exposure to COVID-19; Z87.891 Personal history of nicotine dependence; Z85.3 Personal history of malignant neoplasm of breast
CPT/HCPCS: 72100; 76000; 87635; 97116; 97161; 97165; 97530; 97535; C1776; C9803; C9290; J0171; J0330; J0690; J1100; J1170; J2405; J3010; J3410

== ENCOUNTER → 2021-09-06 13:03 | Outpatient (CLI) | payer MEDICARE, OTHER, SELFPAY ==
[2021-07-11 16:19] VITALS: BMI 21.4
--- NOTE | 2021-09-06 13:04 | DI.MRI.S_ITS ---
BREAST MRI OF BOTH BREASTS: 09/06/2021 CLINICAL: Breast cancer history. TECHNIQUE: The patient was placed prone in a dedicated breast imaging coil. Precontrast axial STIR and 3D FLASH without fat saturation sequences were obtained. Both before and after bolus injection of contrast, sequential 1-minute axial 3D FLASH with fat saturation sequences for 3 time points, with subtraction images and maximum intensity projections (MIP's) generated. Delayed sagittal FLASH images with fat saturation were also obtained. 20 cc ProHance gadolinium based IV contrast was administered without complication. Computer-aided detection, including computer algorithm analysis of MRI image data for lesion detection and characterization, pharmacokinetic analysis, with further physician review for interpretation, was performed. COMPARISON: [facility], , MM SCREEENING MAMMO UNILAT RT, 05/24/2019, 10:55. [facility], , MM SCREEENING MAMMO UNILAT RT, 06/25/2020, 10:51. [facility], , MM SCREEENING MAMMO UNILAT RT, 06/30/2021, 8:47. FINDINGS: Image quality: Excellent. There is minimal background parenchymal enhancement. Right breast: No suspicious mass or non masslike enhancement. Left breast: There are postsurgical findings of left mastectomy and tram flap reconstruction. Surgical clips are seen along the left lateral and inferior chest wall. Miscellaneous: No axillary or internal mammary chain adenopathy. The visible portions of the chest wall, liver, and lungs appear normal. There is cardiomegaly. IMPRESSION: BENIGN 1. No suspicious enhancing abnormalities in the right breast or reconstructed left breast. 2. Benign left reconstructive postsurgical changes are seen. 3. Continue with routine annual mammographic screening. BIRADS two, benign COMMENT: The imaging literature indicates that a negative contrast breast MRI examination has a high sensitivity and a moderate specificity for detecting and excluding invasive carcinomas to a detection threshold of 3-5 mm; nonetheless, appropriate clinical and mammographic follow-up are recommended. MRI is not sensitive for detecting DCIS (ductal carcinoma in situ) and may not detect large invasive neoplasms that show only minimal enhancement such as mucinous carcinoma. If there are suspicious calcifications or clinically worrisome palpable masses, then biopsy should still be considered. Invasive neoplasms can be hidden by co-existent and benign enhancement caused by mastitis, hormone therapy effects, radiation therapy, , and recent biopsy or surgery. False positive examinations can occur in a number of circumstances, including breasts that have recently been subject to invasive procedures and those that contain atypical ductal hyperplasia, hormonally stimulated glandular tissue, fat necrosis, or radial scars. This exam was interpreted at Station ID: [id number]. Electronically Signed By: Jennie ornelas/:09/06/2021 16:15:54 letter sent: Normal Exam ACR BI-RADS Category 2: Benign Finding(s) 3342F
== END ==
PROVIDERS: PCP Family Medicine; Referring Provider Family Medicine; Visit Provider Family Medicine
DX: R92.0 Mammographic microcalcification found on diagnostic imaging of breast (principal); Z85.3 Personal history of malignant neoplasm of breast
CPT/HCPCS: 77049; A9579

== ENCOUNTER → 2022-02-03 14:36 | Outpatient (CLI) | payer MEDICARE, OTHER, SELFPAY ==
[2021-07-11 16:19] VITALS: BMI 21.4
--- NOTE | 2022-02-03 14:39 | DI.RAD.S_ITS ---
PROCEDURE: XR TIBIA FUBULA RT 2V INDICATIONS: RIGHT LEG PAIN TECHNIQUE: 2 views of the tibia and fibula were acquired. COMPARISON: None. FINDINGS: Bones: No fractures or dislocations. No suspicious bony lesions. Knee arthroplasty is present. Hardware is intact. No hardware fracture or periprosthetic lucency to suggest loosening. Soft tissues: No suspicious soft tissue calcifications or masses. IMPRESSION: No visualized acute fracture or dislocation. However, if clinical concern and/or pain persist, short interval imaging followup in 7-10 days is recommended, as occult injury cannot be definitively excluded. Dictated by: Shasha Wiley M.D. on 02/03/2022 at 16:16 Approved by: Shasha Wiley M.D. on 02/03/2022 at 16:16
== END ==
PROVIDERS: PCP Family Medicine; Referring Provider Family Medicine; Visit Provider Family Medicine
DX: M79.604 Pain in right leg (principal); Z96.651 Presence of right artificial knee joint
CPT/HCPCS: 73590

== ENCOUNTER → 2022-04-04 17:16 | Outpatient (CLI) | payer MEDICARE, OTHER, SELFPAY ==
[2021-07-11 16:19] VITALS: BMI 21.4
--- NOTE | 2022-04-04 17:22 | DI.MRI.S_ITS ---
PROCEDURE: MR LUMBAR SPINE WO CON INDICATIONS: SPINAL STENOSIS LUMBAR REGION TECHNIQUE: Noncontrast sagittal T1 spin echo and T2 fast echo, sagittal STIR, and T2 fast spin echo through the lumbar spine. In cases with scoliosis, additional coronal T2 fast spin echo may be performed. COMPARISON: [facility], CT, CT LUMBAR SPINE WO CON, 07/06/2021, 15:59. [facility], MR, MR LUMBAR SPINE WO CON, 04/22/2021, 17:51. FINDINGS: Image quality: Excellent. Alignment and Curvature: Posterior fusion is present at L4-5. There is 3 mm retrolisthesis of L2 on L3, unchanged. Bone Marrow: Marrow is of normal overall signal. Mild reactive endplate changes are present at L4-5. No acute vertebral body compression fractures. Spinal Cord: Conus medullaris terminates at the L1 level. Visualized cord demonstrates normal signal and size. Paraspinous Soft Tissues: No paravertebral masses. Discs: Navj-wv-azpioaca disc desiccation is present throughout the lumbar spine. L1-L2: No disc bulge, spinal stenosis or foraminal narrowing. Facet and ligamentum flavum hypertrophy are present. No interval change. L2-L3: Mild disc bulge without spinal stenosis. Mild canal narrowing. Mild bilateral foraminal narrowing. Facet and ligamentum flavum hypertrophy are present. No interval change. L3-L4: Mild disc bulge with mild spinal stenosis. Mild bilateral foraminal narrowing with facet and ligamentum flavum hypertrophy. No interval change. L4-L5: Postsurgical changes are present at this level. There is no spinal stenosis. There is a persistent appearance of prominent left foraminal narrowing pre surgically noted to be severe and now moderate to severe. In addition, previous pre-surgical kumr-hq-glkhfptm right foraminal narrowing has also improved now mild in appearance. L5-S1: Mild disc bulge without spinal stenosis. Mild bilateral foraminal narrowing with facet and ligamentum flavum hypertrophy. No interval change. IMPRESSION: Postsurgical fusion at L4-5 now demonstrating no spinal stenosis and improved appearance of previous foraminal narrowing. Multilevel degenerative changes at other levels are stable compared to prior exam. Dictated by: Shasha Wiley M.D. on 04/05/2022 at 10:49 Approved by: Sahsha Wiley M.D. on 04/05/2022 at 11:01
== END ==
PROVIDERS: PCP Family Medicine; Referring Provider Orthopaedic Surgery Orthopaedic Surgery of the Spine; Visit Provider Orthopaedic Surgery Orthopaedic Surgery of the Spine
DX: M48.061 Spinal stenosis, lumbar region without neurogenic claudication (principal); Z98.1 Arthrodesis status; M47.816 Spondylosis without myelopathy or radiculopathy, lumbar region
CPT/HCPCS: 72148

== ENCOUNTER → 2022-08-09 11:44 | Outpatient (CLI) | payer MEDICARE, OTHER, SELFPAY ==
[2021-07-11 16:19] VITALS: BMI 21.4
--- NOTE | 2022-08-09 11:46 | DI.MG.S_ITS ---
UNILATERAL RIGHT DIGITAL SCREENING MAMMOGRAM 3D/2D WITH CAD: 08/09/2022 CLINICAL: Routine screening. Personal history of left breast cancer. Comparison is made to exams dated: 09/06/2021 breast MRI, 06/30/2021 mammogram, 06/25/2020 mammogram, and 05/24/2019 mammogram - [facility]. There are scattered areas of fibroglandular density in the right breast (category b / 25%-50% glandular tissue). Current study was also evaluated with a Computer Aided Detection (CAD) system. No significant masses, calcifications, or other findings are seen in the breast. There has been no significant interval change. IMPRESSION: NEGATIVE There is no mammographic evidence of malignancy. A 1 year screening mammogram is recommended. This exam was interpreted at Station ID: [id number]. NOTE: For mammograms, a report in lay terms will be sent to the patient. Approximately 15% of breast malignancies will not be visualized mammographically. In the management of a palpable breast mass, a negative mammogram must not discourage biopsy of a clinically suspicious lesion. Electronically Signed By: Meseret dumont/thor:08/09/2022 12:39:54 letter sent: Normal Exam ACR BI-RADS Category 1: Negative [id number]
== END ==
PROVIDERS: PCP Family Medicine; Referring Provider Family Medicine; Visit Provider Family Medicine
DX: Z12.31 Encounter for screening mammogram for malignant neoplasm of breast (principal); Z85.3 Personal history of malignant neoplasm of breast
CPT/HCPCS: 77063; 77067

== ENCOUNTER → 2022-11-13 15:07 | Outpatient (CLI) | payer MEDICARE, OTHER, SELFPAY ==
[2021-07-11 16:19] VITALS: BMI 21.4
--- NOTE | 2022-11-13 15:09 | DI.RAD.S_ITS ---
PROCEDURE: XR SHOULDER RT MIN 2V INDICATIONS: fell off porch yesterday TECHNIQUE: 3 views of the shoulder were acquired. COMPARISON: None. FINDINGS: Bones: Small cortical indentation of the humeral head. Acromioclavicular joint space narrowing with associated osteophytosis. Soft tissues: No suspicious soft tissue calcifications. IMPRESSION: 1. Small cortical indentation of the humeral head. Findings are suggestive of an age-indeterminate fracture. 2. Acromioclavicular osteoarthritis. Dictated by: Yousif Soria M.D. on 11/13/2022 at 15:24 Approved by: Yousif Soria M.D. on 11/13/2022 at 15:25
== END ==
PROVIDERS: PCP Family Medicine; Referring Provider Family Medicine; Visit Provider Family Medicine
DX: S40.011A Contusion of right shoulder, initial encounter (principal); M19.011 Primary osteoarthritis, right shoulder; W17.89XA Other fall from one level to another, initial encounter
CPT/HCPCS: 73030

== ENCOUNTER → 2022-11-14 15:16 | Outpatient (CLI) | payer MEDICARE, OTHER, SELFPAY ==
[2021-07-11 16:19] VITALS: BMI 21.4
--- NOTE | 2022-11-14 15:17 | DI.CT.S_ITS ---
PROCEDURE: CT SHOULDER RIGHT WITHOUT CON INDICATIONS: further eval of possible humeral head fx TECHNIQUE: Noncontrast 1-1.5 mm thick sections acquired from the acromioclavicular joint to the inferior scapula, with coronal and sagittal reformatting. COMPARISON: [facility], CR, XR SHOULDER RT MIN 2V, 11/13/2022, 16:16. FINDINGS: Image quality: Excellent. Bones: No acute osseous fracture identified. Small lucencies are seen at the greater tuberosity, lesser tuberosity, and anterior humeral head that may be related to prior postsurgical changes versus chronic traction cystic changes. Mild joint space narrowing is seen at the glenohumeral joint with marginal osteophyte formation. There are moderate to severe degenerative changes at the acromioclavicular joint with full-thickness joint space narrowing, marginal osteophyte formation, and subchondral cystic changes. There is mild downsloping of the lateral acromion without significant narrowing of the supraspinatus outlet. The included right-sided ribs are intact. Soft tissues: No significant glenohumeral effusion. Possible mild subcutaneous soft tissue edema anterior to the shoulder. The rotator cuff musculature is normal in bulk. The tendons, ligaments, labrum, and articular cartilages are not well evaluated with standard CT. Small nodular tree-in-bud opacity is seen at the inferior lateral right upper lobe, which is likely infectious or inflammatory in etiology. The remainder of the right lung is clear. Mild aortic atherosclerotic calcifications. IMPRESSION: 1. No acute osseous fracture. Small lucencies are seen about the humeral head that may be related to a prior surgery or chronic traction cystic changes. 2. Mild glenohumeral osteoarthrosis. 3. Moderate to severe acromioclavicular osteoarthrosis. 4. Small area of tree-in-bud nodularity in the inferior lateral right upper lobe is most likely infectious or inflammatory in etiology. Approved by: Andres Joseph M.D. on 11/14/2022 at 20:13
== END ==
PROVIDERS: PCP Family Medicine; Referring Provider Family Medicine; Visit Provider Family Medicine
DX: S40.011A Contusion of right shoulder, initial encounter (principal); M19.011 Primary osteoarthritis, right shoulder
CPT/HCPCS: 73200

== ENCOUNTER → 2022-12-12 09:46 | Outpatient (CLI) | payer MEDICARE, OTHER, SELFPAY ==
[2021-07-11 16:19] VITALS: BMI 21.4
[2022-12-12 10:44] LABS: Creatinine Urine Random 147.1 mg/dL
[2022-12-12 10:51] LABS: Microalbumin Urine Random < 0.6 mg/dL (0-1.6)
[2022-12-12 11:48] LABS: Add Manual Diff / Slide Review NO; Basophils Absolute Auto 0 /uL (0-100); Basophils Percent Auto 0.9 % (0-2); Eosinophils Absolute Auto 100 /uL (0-450); Eosinophils Percent Auto 1.7 % (2-4); Hematocrit 35.3 % (36-46); Hemoglobin 11.5 g/dL (12.0-16.0); Lymphocytes Absolute Auto 1000 /uL (1100-4500); Lymphocytes Percent Auto 25.1 % (25-40); Mean Corpuscular HGB Conc 32.7 % (30-36); Mean Corpuscular Hemoglobin 30.5 PG (26-34); Mean Corpuscular Volume 93.2 fL (80-100); Monocytes Absolute Auto 300 /uL (0-900); Monocytes Percent Auto 8.7 % (3-14); Neutrophils Absolute Auto 2500 /uL (1500-7000); Neutrophils Percent Auto 63.6 % (50-75); Platelet Count 193 X10^3/uL (150-400); Red Blood Cell Count 3.78 X10^6/uL (4.0-5.2); Red Cell Distribution Width 13.5 % (11.6-14.8); White Blood Cell Count 3.9 X10^3/uL (4.5-11.0)
[2022-12-12 12:12] LABS: Alanine Aminotransferase 22 IU/L (<35); Albumin 3.9 g/dL (3.5-5.0); Albumin Globulin Ratio 1.6 (1.0-2.8); Alkaline Phosphatase 64 U/L (38-126); Aspartate Aminotransferase 32 IU/L (14-36); Bilirubin Total 0.7 mg/dL (0.2-1.3); Blood Urea Nitrogen 18 mg/dL (7-17); Carbon Dioxide 27 mmol/L (22-32); Chloride 105 mmol/L (98-107); Cholesterol 167 mg/dL (140-199); Estimated Glomerular Filt Rate > 60 mL/min (>60); Globulin 2.4 g/dL (1.7-4.1); Glucose 91 mg/dL (80-110); HDL Cholesterol 93 mg/dL (40-60); HEMOLYSIS < 15 (0-50); LDL Cholesterol Calculated 64 mg/dL (<100); Potassium 4.4 mmol/L (3.4-5.1); Sodium 139 mmol/L (137-145); Total Protein 6.3 g/dL (6.3-8.2); Triglycerides 50 mg/dL (35-150)
[2022-12-12 12:39] LABS: TSH w/ Reflex to FT4 1.19 uIU/mL (0.47-4.68)
[2022-12-14 16:56] LABS: Hep C Virus Ab w/Reflex Quant NEGATIVE s/c (NEGATIVE)
== END ==
PROVIDERS: PCP Family Medicine; Referring Provider Family Medicine; Visit Provider Family Medicine
DX: E78.5 Hyperlipidemia, unspecified (principal); I10 Essential (primary) hypertension; Z00.00 Encounter for general adult medical examination without abnormal findings
CPT/HCPCS: 36415; 80053; 80061; 82043; 82570; 84443; 85025; 86803

== ENCOUNTER → 2022-12-13 12:26 | Outpatient (CLI) | payer MEDICARE, OTHER, SELFPAY ==
[2021-07-11 16:19] VITALS: BMI 21.4
--- NOTE | 2022-12-13 12:27 | DI.MRI.S_ITS ---
PROCEDURE: MR HEAD/BRAIN WO CON INDICATIONS: intermittent double vision TECHNIQUE: Non-contrast axial T1 spin echo, axial T2 fast spin echo, sagittal and axial FLAIR, coronal T2 fast spin echo, axial gradient echo, axial diffusion and ADC through the brain. COMPARISON: None. FINDINGS: Image quality: Excellent. CSF spaces: Ventricles appear symmetric in size and shape. Basal cisterns are patent. No extra-axial fluid collections. Brain: No intracranial bleeds or mass effects. There is cerebral volume loss for age. There are periventricular and deep white matter chronic small vessel ischemic changes. Brainstem appears normal. Diffusion-weighted images show no acute ischemic insults. No chronic ischemic insults. Normal intravascular flow voids are present. Skull and face: Calvarial bone marrow is normal in signal. Orbits are normal. Note is made of bilateral lens replacements. Sinuses: Sinuses and mastoids are clear. IMPRESSION: Brain MRI within normal limits for age, without a cause of the patient's presenting history identified. Dictated by: Tanner Cabrera M.D. on 12/13/2022 at 12:48 Approved by: Tanner Cabrera M.D. on 12/13/2022 at 12:49
== END ==
PROVIDERS: PCP Family Medicine; Referring Provider Family Medicine; Visit Provider Family Medicine
DX: H53.2 Diplopia (principal)
CPT/HCPCS: 70551

== ENCOUNTER → 2023-01-17 15:41 | Outpatient (CLI) | payer MEDICARE, OTHER, SELFPAY ==
[2022-12-22 14:08] VITALS: BMI 21.4
--- NOTE | 2023-01-17 15:55 | DI.MRI.S_ITS ---
PROCEDURE: MR SHOULDER RT WO CON INDICATIONS: acute right shoulder pain and reduced ROM TECHNIQUE: Noncontrast oblique coronal T2 fast spin echo with fat saturation, oblique sagittal T1 spin echo and T2 fast spin echo with fat saturation, axial T1 spin echo and T2 fast spin echo with fat saturation through the shoulder. COMPARISON: [facility], CR, XR SHOULDER RT MIN 2V, 11/13/2022, 16:16. [facility], CT, CT SHOULDER RIGHT WITHOUT CON, 11/14/2022, 15:16. FINDINGS: Image quality: Excellent. Rotator cuff: Moderate T2 signal elevation diffusely throughout the supraspinatus and infraspinatus tendons at the humeral insertion sites extending to the musculotendinous junctions, indicating tendinopathy. Superimposed low-grade partial-thickness intrasubstance tearing of the anterior and mid supraspinatus tendon at the humeral insertion site. Superimposed high-grade intrasubstance and articular surface tearing of the mid/posterior supraspinatus tendon at the humeral insertion site. Low-grade partial-thickness articular surface tearing of the posterior supraspinatus as well as the anterior infraspinatus tendon at the humeral insertion site. Subscapularis and teres minor tendons are intact. Bones and bursae: There is a new mildly depressed fracture of the posterosuperior humeral head with moderate surrounding ill-defined T2 signal elevation, indicating contusion. Moderate glenohumeral and acromioclavicular joint degeneration. The acromion demonstrates conventional anatomy, without an os acromiale. A small amount of subacromial-subdeltoid or subcoracoid bursal fluid is present. Capsule and soft tissues: Demonstrates diffuse degenerative fraying The long head of the biceps tendon demonstrates normal location and morphology. The rotator interval appears normal, without fibrosis. The coracohumeral ligament is normal in thickness. IMPRESSION: 1. Humeral head fracture. 2. Supraspinatus and infraspinatus tendinopathy with superimposed partial thickness tears as described above. 3. Acromioclavicular and glenohumeral joint osteoarthritis. 4. Diffuse degenerative glenoid labral tearing. 5. Subacromial bursitis. Dictated by: Sayda Jin M.D. on 01/17/2023 at 16:30 Transcribed by: IVA on 01/17/2023 at 16:32 Approved by: Sayda Jin M.D. on 01/17/2023 at 16:46
== END ==
PROVIDERS: PCP Family Medicine; Referring Provider Family Medicine; Visit Provider Family Medicine
DX: S42.291A Other displaced fracture of upper end of right humerus, initial encounter for closed fracture (principal); S43.421A Sprain of right rotator cuff capsule, initial encounter; S43.491A Other sprain of right shoulder joint, initial encounter; M19.011 Primary osteoarthritis, right shoulder; M75.51 Bursitis of right shoulder; X58.XXXA Exposure to other specified factors, initial encounter
CPT/HCPCS: 73221

== ENCOUNTER → 2023-03-22 12:19 | Outpatient (CLI) | payer MEDICARE, OTHER, SELFPAY ==
[2022-12-22 14:08] VITALS: BMI 21.4
--- NOTE | 2023-03-22 12:20 | DI.RAD.S_ITS ---
PROCEDURE: XR LUMBAR SPINE MIN 4V INDICATIONS: LOW BACK PAIN TECHNIQUE: 5 views of the lumbar spine were acquired, including bilateral oblique views. [facility], [facility]R LUMBAR SPINE 2 OR 3 VIEWS, 08/23/2021, 13:35. [facility], CR, XR LUMBAR SPINE 2-3V, 07/11/2021, 12:30. FINDINGS: Bones: 5 nonrib-bearing vertebrae are present. There is stable bony alignment status post fusion at L4-5 and L4-5 discectomy. Interbody spacer is unchanged.. Stable appearance of minimal retrolisthesis of L2 on L3. Multilevel lumbar spondylitic changes are relatively stable in appearance. No acute vertebral body compression fractures. No suspicious bony lesions. No pars defect seen. Soft tissues: Overlying bowel gas pattern is normal. No suspicious soft tissue calcifications. Redemonstration of scattered surgical clip scattered throughout the abdomen. Oblique images: No pars defects. On the bilateral oblique views, there is suggestion of increased lucency surrounding the bilateral pedicular screws. No hardware fracture seen on either side. IMPRESSION: Lumbar spine without acute fracture. Stable minimal retrolisthesis of L2 on L3. Redemonstration of post surgical changes from remote posterior spinal fusion of L4-5 with suggestion of increased osseous lucency surrounding the pedicular screws bilaterally. Findings may represent hardware loosening. Consider further evaluation with nuclear medicine bone scan. Dictated by: Henry Branham M.D. on 03/22/2023 at 16:16 Approved by: Henry Branham M.D. on 03/22/2023 at 16:26
== END ==
PROVIDERS: PCP Family Medicine; Referring Provider Anesthesiology; Visit Provider Anesthesiology
DX: M47.26 Other spondylosis with radiculopathy, lumbar region (principal); M51.16 Intervertebral disc disorders with radiculopathy, lumbar region; M79.18 Myalgia, other site; G89.4 Chronic pain syndrome; M54.50 Low back pain, unspecified; Z98.1 Arthrodesis status
CPT/HCPCS: 72110; 99214

== ENCOUNTER 2023-04-11 14:59 | Outpatient (CLI) | payer MEDICARE, OTHER, SELFPAY ==
[2022-12-22 14:08] VITALS: BMI 21.4
[2023-04-11] VITALS (9 sets, daily range): BP systolic 110–160; BP diastolic 60–91; PULSE 69–78; RESP 12–16; TEMP 36.5; O2SAT 97–99
--- NOTE | 2023-04-11 15:01 | DI.RAD.S_ITS ---
PROCEDURE: PAIN L INTERLAMINAR/CAUDAL INJ INDICATIONS: radiculopathy COMPARISON: None. FINDINGS: Fluoroscopic spot filming was performed to verify placement of spinal needles at the S2 level(s), as labeled on the films. Appropriate location(s) of the needle tip(s) was confirmed by injection of iodinated contrast. IMPRESSION: Fluoro guidance was provided intraoperatively for caudal epidural steroid injection performed by the ordering physician. Dictated by: Amilcar Aguilera M.D. on 04/11/2023 at 16:59 Approved by: Amilcar Aguilera M.D. on 04/11/2023 at 16:59
[2023-04-11] MEDS: MIDAZOLAM 2 MG/2 ML VIAL 1 MG IV ×2 (15:25→15:32)
[2023-04-11] MEDS: DEXAMETHASONE 10 MG/ML VIAL INJ (15:28)
[2023-04-11] MEDS: IOPAMIDOL 15 ML VIAL 3 ML INJ (15:28)
--- NOTE | 2023-04-11 15:49 | P.PCN_ITS ---
Date/Time/Diagnoses Date of procedure: 04/11/23 Time of procedure: 15:30 Procedure Notes Physician: Marc Rodas Total Fluoroscopy time (seconds): 17 Total sedation minutes: 16 Procedure in detail & Post-procedure care: Caudal Epidural Steroid Injection Indications: Devi Islas is presenting for treatment of lumbar radiculopathy with low back and leg pain. Preoperative diagnosis: Lumbar radiculopathy Postoperative diagnosis: Same Focused Examination: Ax3 Mood and affect are normal Vital Signs: VSS ASA: 2 Consent: Following review of allergies and potential side effects/complications, including, but not necessarily limited to, infection, allergic reaction, local tissue breakdown, stroke, temporary or permanent nerve injury, paralysis, and possible , the patient indicated that they understood and agreed to proceed.? An informed consent document was signed by the patient, witnessed by a nurse and placed in the patient's chart.? Additionally, other treatment options including medications and physical therapy were reviewed with the patient. All questions were answered. Site was then marked. Anesthesia: After review of previous anesthetic history and IV conscious sedation, the patient was deemed safe to proceed with today's procedure with IV conscious sedation. IV sedation was accomplished with midazolam 2 mg administered by the RN after order by Dr. Rodas. Sedation was titrated to patient comfort during the course of the procedure. Patient remained responsive to all verbal commands. Position: Prone Monitoring: NIBP, Pulse oximetry, 3 lead EKG Needle used: 17 gauge Touhy with 19 gauge TheraCath Epidural Catheter Contrast: Isovue 300-M 2mL Injectate: Dexamethasone 10 mg with 1% lidocaine 2 mL and normal saline 2 mL Technique: The skin was prepped with chloraprep and then draped in a sterile fashion. Time out was performed as per protocol. Oxygen applied via NC. The entry point for entering/approaching the epidural space by a caudal approach through the sacral hiatus was identified. Skin and subcutaneous structures of the needle entry site was then infiltrated with 3 mL of lidocaine 1%. Under AP and lateral control, the needle was guided through the sacral hiatus to the S3 level. The catheter was then advanced to L5-S1 using intermittent fluoroscopy. Contrast was then injected and the spread was consistent with the epidural space. There was no evidence for intravascular or intrathecal uptake. After negative aspiration, the above-mentioned injectate was then slowly administered and the needle withdrawn. The patient expressed no unusual discomfort or paresthesias during needle positioning or injection. Band-Aids applied to injection sites. EBL: less than 1 ml Complications: None Post Procedure: Patient was taken to the recovery and monitored. The patient was provided a Pain Log to continue to record the patient's response to the target- specific procedure prior to the patient's follow-up visit with the referring physician. Patient was stable upon discharge. Detailed post procedure instructions were provided. Patient was asked to call in the event of worsening pain, fever, weakness, numbness or bladder or bowel incontinence.
== END 2023-04-11 16:07 | disposition home or self-care (01) ==
LOC: RAD 15:00
PROVIDERS: PCP Family Medicine; Referring Provider Anesthesiology; Visit Provider Anesthesiology
DX: M54.16 Radiculopathy, lumbar region (principal)
CPT/HCPCS: 62323; 99152; J1100; J2250

== ENCOUNTER 2023-08-15 09:56 | Outpatient (CLI) | payer MEDICARE, OTHER, SELFPAY ==
[2022-12-22 14:08] VITALS: BMI 21.4
[2023-08-15] VITALS (10 sets, daily range): BP systolic 118–143; BP diastolic 61–91; PULSE 63–73; RESP 12–19; TEMP 36.9; O2SAT 95–98
--- NOTE | 2023-08-15 09:58 | DI.RAD.S_ITS ---
PROCEDURE: PAIN PERIPHERAL NRV BLK OTHER INDICATIONS: NEURALGIA COMPARISON: None. FINDINGS: Fluoroscopic spot filming was performed to verify placement of spinal needles at the left superior Cluenal level(s), as labeled on the films. Appropriate location(s) of the needle tip(s) was confirmed by injection of iodinated contrast. IMPRESSION: Intra procedural fluoroscopic views. Dictated by: Skip Kirby M.D. on 08/15/2023 at 15:24 Approved by: Skip Kirby M.D. on 08/15/2023 at 15:24
[2023-08-15] MEDS: MIDAZOLAM 2 MG/2 ML VIAL 1 MG IV ×2 (10:43→10:51)
[2023-08-15] MEDS: iopamidoL 15 ML VIAL 3 ML INJ (10:46)
[2023-08-15] MEDS: BUPIVACAINE 0.5% (PF) 10 ML VIAL 5 ML INJ (10:47)
--- NOTE | 2023-08-15 12:36 | P.PCN_ITS ---
Date/Time/Diagnoses Date of procedure: 08/15/23 Time of procedure: 10:30 Procedure Notes Physician: Marc Rodas Total Fluoroscopy time (seconds): 9 Total sedation minutes: 12 Procedure in detail & Post-procedure care: Left Cluneal Nerve Injection Indications: Devi is presenting for treatment of cluneal neuralgia with low back and buttock pain. Preoperative diagnosis: Left cluneal neuralgia Postoperative diagnosis: Same Focused Examination: Ax3 Mood and affect are normal Vital Signs: VSS ASA: 2 Consent: Following review of allergies and potential side effects/complications, including, but not necessarily limited to, infection, allergic reaction, local tissue breakdown, stroke, temporary or permanent nerve injury, paralysis, and possible , the patient indicated that they understood and agreed to proceed.? An informed consent document was signed by the patient, witnessed by a nurse and placed in the patient's chart.? Additionally, other treatment options including medications and physical therapy were reviewed with the patient. All questions were answered. Site was then marked. Anesthesia: After review of previous anesthetic history and IV conscious sedation, the patient was deemed safe to proceed with today's procedure with IV conscious sedation. IV sedation was accomplished with midazolam 2 mg administered by the RN after order by Dr. Rodas. Sedation was titrated to patient comfort during the course of the procedure. Patient remained responsive to all verbal commands. Position: Prone Monitoring: NIBP, Pulse oximetry, 3 lead EKG Needle used: 25 gauge, 3.5 inch spinal needle x3 Contrast: Isovue 300-M 3mL Injectate: Depomedrol 40mg with 8 mL 0.5% Bupivacaine - 3 mL per site Technique: The skin was prepped with chloraprep and then draped in a sterile fashion. Time out was performed as per protocol. Oxygen applied via NC. Midline of the spine was identified using fluoroscopy. The skin was measured 8 cm from midline and sterile fredy placed on the skin delineating the superior aspect of the iliac crest on the left. Two otero were subsequently made 2 cm medial and 2 cm lateral for a total of 3 target sites. Skin and subcutaneous structures of the needle entry sites were then infiltrated with 5 mL of lidocaine 1%. Under AP and contralateral oblique control, the needle was guided to the superior aspect of the iliac crest in the 3 locations. Contrast was injected and the spread was consistent with appropriate needle location. There was no evidence for intravascular uptake. After negative aspiration, the above-mentioned injectate was then slowly administered and the needles withdrawn. The patient expressed no unusual discomfort or paresthesias during needle positioning or injection. Band- Aids applied to injection sites. EBL: less than 1 ml Complications: None Post Procedure: Patient was taken to the recovery and monitored. The patient was provided a Pain Log to continue to record the patient's response to the target- specific procedure prior to the patient's follow-up visit with the referring physician. Patient was stable upon discharge. Detailed post procedure instructions were provided. Patient was asked to call in the event of worsening pain, fever, weakness, numbness or bladder/bowel incontinence.
== END 2023-08-15 11:20 | disposition home or self-care (01) ==
PROVIDERS: PCP Family Medicine; Referring Provider Anesthesiology; Visit Provider Anesthesiology
DX: G58.8 Other specified mononeuropathies (principal)
CPT/HCPCS: 64450; 99152; J1030; J2250; J2920

== ENCOUNTER → 2023-08-28 15:37 | Outpatient (CLI) | payer MEDICARE, OTHER, SELFPAY ==
[2022-12-22 14:08] VITALS: BMI 21.4
[2023-08-28 16:29] LABS: Add Manual Diff / Slide Review NO; Basophils Absolute Auto 100 /uL (0-100); Basophils Percent Auto 1.3 % (0-2); Eosinophils Absolute Auto 0 /uL (0-450); Eosinophils Percent Auto 0.7 % (2-4); Hematocrit 37.3 % (36-46); Hemoglobin 12.7 g/dL (12.0-16.0); Lymphocytes Absolute Auto 1400 /uL (1100-4500); Lymphocytes Percent Auto 23.5 % (25-40); Mean Corpuscular HGB Conc 34.1 % (30-36); Mean Corpuscular Hemoglobin 31.5 PG (26-34); Mean Corpuscular Volume 92.5 fL (80-100); Monocytes Absolute Auto 400 /uL (0-900); Monocytes Percent Auto 6.2 % (3-14); Neutrophils Absolute Auto 4100 /uL (1500-7000); Neutrophils Percent Auto 68.3 % (50-75); Platelet Count 184 X10^3/uL (150-400); Red Blood Cell Count 4.03 X10^6/uL (4.0-5.2)
[2023-08-28 17:20] LABS: HEMOLYSIS < 15 (0-50); Iron 101 ug/dL (37-170)
[2023-08-28 17:31] LABS: Percent Iron Saturation 33 % (15-50); Total Iron Binding Capacity 304 ug/dL (265-497); Transferrin 286 mg/dL (206-381)
[2023-08-28 17:56] LABS: Ferritin 88 ng/mL (11-264)
== END ==
PROVIDERS: PCP Family Medicine; Referring Provider Physician Assistant; Visit Provider Physician Assistant
DX: D64.9 Anemia, unspecified (principal)
CPT/HCPCS: 36415; 82728; 83540; 83550; 85025

== ENCOUNTER → 2023-09-04 15:45 | Outpatient (CLI) | payer MEDICARE, OTHER, SELFPAY ==
[2022-12-22 14:08] VITALS: BMI 21.4
--- NOTE | 2023-09-04 | DI.MG.S_ITS ---
UNILATERAL RIGHT DIGITAL SCREENING MAMMOGRAM 3D/2D WITH CAD POST MASTECTOMY: 09/04/2023 CLINICAL: Routine screening. Personal history of left breast cancer. Family history of breast cancer. Comparison is made to exams dated: 08/09/2022 mammogram, 09/06/2021 breast MRI, and 06/30/2021 mammogram - [facility]. There are scattered areas of fibroglandular density in the right breast (category b / 25%-50% glandular tissue). Current study was also evaluated with a Computer Aided Detection (CAD) system. There is a possible developing oval equal density asymmetry in the right breast central to the nipple in the retroareolar region. No other significant masses or calcifications are seen in the breast. IMPRESSION: INCOMPLETE: NEEDS ADDITIONAL IMAGING EVALUATION The possible developing oval equal density asymmetry in the right breast is indeterminate. Additional views with possible ultrasound are recommended. This exam was interpreted at Station ID: [id number]. NOTE: For mammograms, a report in lay terms will be sent to the patient. Approximately 15% of breast malignancies will not be visualized mammographically. In the management of a palpable breast mass, a negative mammogram must not discourage biopsy of a clinically suspicious lesion. Electronically Signed By: Jennie ornelas/thor:09/05/2023 14:20:27 letter sent: Additional Imaging Needed ACR BI-RADS Category 0: Incomplete 3340F
== END ==
PROVIDERS: PCP Family Medicine; Referring Provider Family Medicine; Visit Provider Family Medicine
DX: Z12.31 Encounter for screening mammogram for malignant neoplasm of breast (principal); Z85.3 Personal history of malignant neoplasm of breast; Z80.3 Family history of malignant neoplasm of breast
CPT/HCPCS: 77063; 77067

== ENCOUNTER → 2023-09-19 11:38 | Outpatient (CLI) | payer MEDICARE, OTHER, SELFPAY ==
[2022-12-22 14:08] VITALS: BMI 21.4
--- NOTE | 2023-09-19 | DI.MG.S_ITS ---
UNILATERAL RIGHT DIGITAL DIAGNOSTIC MAMMOGRAM 3D/2D WITH ADDITIONAL VIEWS: 09/19/2023 CLINICAL: Additional evaluation requested from prior study. Comparison is made to exams dated: 09/04/2023 mammogram, 08/09/2022 mammogram, 06/30/2021 mammogram, and 06/25/2020 mammogram - [facility]. There are scattered areas of fibroglandular density in the right breast (category b / 25%-50% glandular tissue). There is an oval equal density focal asymmetry with a circumscribed margin in the right breast at 11 o'clock in the retroareolar region. This is seen in additional views. No other significant masses or calcifications are seen in the breast. IMPRESSION: INCOMPLETE: NEEDS ADDITIONAL IMAGING EVALUATION The oval equal density focal asymmetry in the right breast is indeterminate. An ultrasound is recommended. This exam was interpreted at Station ID: [id number]. NOTE: For mammograms, a report in lay terms will be sent to the patient. Approximately 15% of breast malignancies will not be visualized mammographically. In the management of a palpable breast mass, a negative mammogram must not discourage biopsy of a clinically suspicious lesion. Electronically Signed By: Andres gilliam/thor:09/19/2023 20:11:41 ACR BI-RADS Category 0: Incomplete [id number]
--- NOTE | 2023-09-19 11:42 | DI.US.S_ITS ---
LIMITED ULTRASOUND OF RIGHT BREAST: 09/19/2023 CLINICAL: Patient returns today to evaluate an asymmetry in the right breast. Comparison is made to exams dated: 09/19/2023 mammogram, 09/04/2023 mammogram, 08/09/2022 mammogram, 09/06/2021 breast MRI, 06/30/2021 mammogram, and 06/25/2020 mammogram - [facility]. Color flow ultrasound of the right breast retroareolar was performed. Foster scale images of the real-time examination were reviewed. There is a 1.1 cm x 0.4 cm x 1.3 cm dilated duct in the right breast central to the nipple in the retroareolar region. This dilated duct displays internal echoes. This correlates with mammography findings. Color flow imaging demonstrates that there is no vascularity present. IMPRESSION: PROBABLY BENIGN The 1.1 cm x 0.4 cm x 1.3 cm dilated duct in the right breast has a differential diagnosis of intraductal debris, complicated cyst, or a solid mass and is probably benign. A follow-up right ultrasound in 6 months is recommended to demonstrate stability. This exam was interpreted at Station ID: [id number]. Electronically Signed By: Andres Joseph M.D. ar/:09/19/2023 20:22:39 letter sent: Followup Recommended Ultrasound BI-RADS: 3 Probably benign
== END ==
PROVIDERS: PCP Family Medicine; Referring Provider Family Medicine; Visit Provider Family Medicine
DX: R92.8 Other abnormal and inconclusive findings on diagnostic imaging of breast (principal); N60.41 Mammary duct ectasia of right breast
CPT/HCPCS: 76642; 77065; G0279

== ENCOUNTER → 2023-10-02 13:17 | Outpatient (CLI) | payer MEDICARE, OTHER, SELFPAY ==
[2022-12-22 14:08] VITALS: BMI 21.4
--- NOTE | 2023-10-02 | DI.MRI.S_ITS ---
BREAST MRI OF BOTH BREASTS- POST MASTECTOMY: 10/02/2023 CLINICAL: Right breast asym. Comparison is made to exams dated: 09/19/2023 ultrasound, 09/19/2023 mammogram, 09/04/2023 mammogram, 08/09/2022 mammogram, 09/06/2021 breast MRI, and 06/30/2021 mammogram - [facility]. INDICATIONS: RIGHT BREAST ASYMMETRY TECHNIQUE: The patient was placed prone in a dedicated breast imaging coil. Precontrast axial STIR and 3D FLASH without fat saturation sequences were obtained. Both before and after bolus injection of contrast, sequential 1-minute axial 3D FLASH with fat saturation sequences for 3 time points, with subtraction images and maximum intensity projections (MIP's) generated. Delayed sagittal FLASH images with fat saturation were also obtained. Computer-aided detection, including computer algorithm analysis of MRI image data for lesion detection and characterization, pharmacokinetic analysis, with further physician review for interpretation, was performed. FINDINGS: Image quality: Mild misregistration is seen on subtraction images, which may be related to slight differences of patient positioning or respiratory motion. Diagnostic information is obtained. There is minimal background parenchymal enhancement. Scattered fibroglandular elements are seen in the right breast. Right breast: Focal probable dilated duct is seen in the right retroareolar region (best appreciated on image 56 of series 3), which corresponds with the ultrasound finding from 09/19/2023. No associated postcontrast enhancement is seen, consistent with a benign process. No suspicious mass or abnormal non-mass enhancement is seen in the right breast. No axillary or internal mammary lymphadenopathy. Left breast: Postsurgical changes are again seen from left mastectomy and reconstruction. Surgical clips are again seen along the left chest wall. No abnormal enhancement in the left breast. No axillary or internal mammary lymphadenopathy. Miscellaneous: Included portions of the anterior chest wall and upper abdomen demonstrate no acute abnormality. There is trace dependent right-sided pleural fluid. IMPRESSION: BENIGN 1. Previously seen focal asymmetry in the right breast retroareolar region demonstrates no postcontrast enhancement, and is considered benign. Recommend return to annual screening mammograms. 2. Stable postsurgical changes from left mastectomy and reconstruction. No abnormal enhancement in the left breast. 3. No MR evidence of malignancy. No significant axillary or internal mammary lymphadenopathy bilaterally. BIRADS 2: Benign. Recommend return to annual mammographic screening schedule. Return to annual mammogram screening schedule is recommended. This exam was interpreted at Station ID: [id number]. Electronically Signed By: Andres Joseph M.D. ar/:10/03/2023 08:02:45 letter sent: Normal Exam ACR BI-RADS Category 2: Benign Finding(s) 3342F
== END ==
LOC: MRI 13:18
PROVIDERS: PCP Family Medicine; Referring Provider Family Medicine; Visit Provider Family Medicine
DX: N64.89 Other specified disorders of breast (principal); N63.0 Unspecified lump in unspecified breast; Z90.12 Acquired absence of left breast and nipple
CPT/HCPCS: 77049; A9579

== ENCOUNTER → 2023-10-03 10:45 | Outpatient (CLI) | payer MEDICARE, OTHER, SELFPAY ==
[2022-12-22 14:08] VITALS: BMI 21.4
--- NOTE | 2023-10-03 10:46 | DI.NM.S_ITS ---
PROCEDURE: NM BONE SPECT RADIOPHARMACEUTICAL: 20.7 mCi Tc-99m MDP IV. INDICATIONS: Lumbar spine, Assess surgical harware TECHNIQUE: Delayed bone scintigrams were obtained of the region of interest 3-4 hours after intravenous administration of Tc-99m MDP. Additional tomographic (SPECT) imaging was performed and displayed in axial, coronal, and sagittal planes. COMPARISON: [facility], CR, XR LUMBAR SPINE MIN 4V, 03/22/2023, 12:16. FINDINGS: On planar images, there are increased activity in L4 and L5 area. SPECT images demonstrate increased activity primarily involving the L4 and L5 vertebral bodies. The comparison x-ray demonstrates discectomy and posterior fusion at L4-L5. There is lucency surrounding the pedicular screws at corresponding levels suggesting prosthesis loosening. IMPRESSION: Postsurgical changes at L4-L5 with thick section me and posterior fusion. There is increased activity in L4 and L5 primarily involving the vertebral bodies. The comparison x-ray showed postsurgical changes and lucencies surrounding the pedicular screws in corresponding levels concerning for prosthesis loosening. The scintigraphic findings are also suggestive of the possibility of hardware failure. Dictated by: Chuyita Rod M.D. on 10/03/2023 at 17:23 Approved by: Chuyita Rod M.D. on 10/04/2023 at 9:24
== END ==
LOC: NUCM 10:46
PROVIDERS: PCP Family Medicine; Referring Provider Anesthesiology; Visit Provider Anesthesiology
DX: Z98.1 Arthrodesis status (principal); Z09 Encounter for follow-up examination after completed treatment for conditions other than malignant neoplasm
CPT/HCPCS: 78305; A9503

== ENCOUNTER → 2023-11-09 15:46 | Outpatient (CLI) | payer MEDICARE, OTHER, SELFPAY ==
[2022-12-22 14:08] VITALS: BMI 21.4
--- NOTE | 2023-11-09 15:49 | DI.MRI.S_ITS ---
PROCEDURE: MR LUMBAR SPINE WO CON INDICATIONS: s/p lumbar fusion, ? loose hardware TECHNIQUE: Noncontrast sagittal T1 spin echo and T2 fast echo, sagittal STIR, and T2 fast spin echo through the lumbar spine. In cases with scoliosis, additional coronal T2 fast spin echo may be performed. COMPARISON: [facility], MR, MR LUMBAR SPINE WO CON, 04/04/2022, 17:28. FINDINGS: Image quality: Excellent. Alignment and Curvature: There is normal bony alignment. Bone Marrow: L4-5 posterior spinal fixation and discectomy hardware. Marrow is of normal overall signal. No acute vertebral body compression fractures. Spinal Cord: Conus medullaris terminates at the L1 level. Visualized cord demonstrates normal signal and size. Paraspinous Soft Tissues: No paravertebral masses. T12-L1: Normal appearance. L1-L2: Mild disc desiccation. No central canal or neural foraminal stenosis. L2-L3: Disc desiccation and mild disc height loss with posterior disc bulge. Facet arthropathy. Mild central canal stenosis and mild bilateral neural foraminal stenosis is stable. L3-L4: Disc desiccation. Facet arthropathy. Mild central canal stenosis and mild bilateral neural foraminal stenosis is stable. L4-L5: Discectomy. Mild residual disc bulge. Facet arthropathy. No central canal stenosis. Mild right and moderate to severe left neural foraminal stenosis is stable. L5-S1: Disc desiccation. Facet arthropathy. No spinal canal stenosis. Mild bilateral neural foraminal stenosis is stable. IMPRESSION: 1. Stable degenerative changes of the lumbar spine status post L4-5 posterior spinal fixation and discectomy. 2. Mild multilevel central canal stenosis as above. 3. Moderate to severe left neural foraminal stenosis at L4-5. Mild neural foraminal stenosis at other levels, as above. Dictated by: Cheng Dunbar M.D. on 11/09/2023 at 16:57 Approved by: Cheng Dunbar M.D. on 11/09/2023 at 17:02
== END ==
PROVIDERS: PCP Family Medicine; Referring Provider Anesthesiology; Visit Provider Anesthesiology
DX: T84.296A Other mechanical complication of internal fixation device of vertebrae, initial encounter (principal); M47.26 Other spondylosis with radiculopathy, lumbar region; M47.27 Other spondylosis with radiculopathy, lumbosacral region; M48.061 Spinal stenosis, lumbar region without neurogenic claudication; M48.07 Spinal stenosis, lumbosacral region; M54.50 Low back pain, unspecified; G89.29 Other chronic pain; Z98.1 Arthrodesis status
CPT/HCPCS: 72148

== ENCOUNTER → 2023-11-12 13:40 | Outpatient (CLI) | payer MEDICARE, OTHER, SELFPAY ==
[2022-12-22 14:08] VITALS: BMI 21.4
== END ==
LOC: CAR 13:41
PROVIDERS: PCP Family Medicine; Referring Provider Family Medicine; Visit Provider Family Medicine
DX: R00.2 Palpitations (principal)
CPT/HCPCS: 93246

== ENCOUNTER 2023-11-21 14:56 | Outpatient (CLI) | payer MEDICARE, OTHER, SELFPAY ==
[2022-12-22 14:08] VITALS: BMI 21.4
[2023-11-21] VITALS (8 sets, daily range): BP systolic 119–183; BP diastolic 63–79; PULSE 64–77; RESP 12–20; TEMP 36.3; O2SAT 96–100
[2023-11-21] MEDS: MIDAZOLAM 2 MG/2 ML VIAL 1 MG IV ×2 (15:26→15:30)
--- NOTE | 2023-11-21 15:30 | DI.RAD.S_ITS ---
PROCEDURE: PAIN L INTERLAMINAR/CAUDAL INJ INDICATIONS: RADICULOPATHY COMPARISON: [facility], XA, PAIN L INTERLAMINAR/CAUDAL INJ, 04/11/2023, 15:28. FINDINGS: Fluoroscopic spot filming was performed to verify placement of spinal needles at the sacrum level(s), as labeled on the films. Appropriate location(s) of the needle tip(s) was confirmed by injection of iodinated contrast. Partially seen lumbar fusion hardware and interbody spacer. Pelvic clips are seen. IMPRESSION: Intraoperative images, please see procedure note for full details. Dictated by: Reyes Maya M.D. on 11/21/2023 at 17:03 Approved by: Reyes Maya M.D. on 11/21/2023 at 17:04
[2023-11-21] MEDS: iopamidoL 15 ML VIAL 3 ML INJ (15:33)
[2023-11-21] MEDS: DEXAMETHASONE 10 MG/ML VIAL INJ (15:33)
--- NOTE | 2023-11-21 15:45 | P.PCN_ITS ---
Date/Time/Diagnoses Date of procedure: 11/21/23 Time of procedure: 15:30 Procedure Notes Physician: Marc Rodas Total Fluoroscopy time (seconds): 9 Total sedation minutes: 12 Procedure in detail & Post-procedure care: Caudal Epidural Steroid Injection Indications: Devi Islas is presenting for treatment of lumbar radiculopathy with low back and leg pain. Preoperative diagnosis: Lumbar radiculopathy Postoperative diagnosis: Same Focused Examination: Ax3 Mood and affect are normal Vital Signs: VSS ASA: 2 Consent: Following review of allergies and potential side effects/complications, including, but not necessarily limited to, infection, allergic reaction, local tissue breakdown, stroke, temporary or permanent nerve injury, paralysis, and possible , the patient indicated that they understood and agreed to proceed.? An informed consent document was signed by the patient, witnessed by a nurse and placed in the patient's chart.? Additionally, other treatment options including medications and physical therapy were reviewed with the patient. All questions were answered. Site was then marked. Anesthesia: After review of previous anesthetic history and IV conscious sedation, the patient was deemed safe to proceed with today's procedure with IV conscious sedation. IV sedation was accomplished with midazolam 2 mg administered by the RN after order by Dr. Rodas. Sedation was titrated to pa tient comfort during the course of the procedure. Patient remained responsive to all verbal commands. Position: Prone Monitoring: NIBP, Pulse oximetry, 3 lead EKG Needle used: 25 ga, 3.5 in spinal Contrast: Isovue 300-M 2mL Injectate: Dexamethasone 10 mg with 1% lidocaine 2 mL and normal saline 2 mL Technique: The skin was prepped with chloraprep and then draped in a sterile fashion. Time out was performed as per protocol. Oxygen applied via NC. The entry point for entering/approaching the epidural space by a caudal approach through the sacral hiatus was identified. Skin and subcutaneous structures of the needle entry site was then infiltrated with 3 mL of lidocaine 1%. Under AP and lateral control, the needle was guided through the sacral hiatus to the S3 level. Contrast was then injected and the spread was consistent with the epidural space. There was no evidence for intravascular or intrathecal uptake. After negative aspiration, the above-mentioned injectate was then slowly administered and the needle withdrawn. The patient expressed no unusual discomfort or paresthesias during needle positioning or injection. Band-Aids applied to injection sites. EBL: less than 1 ml Complications: None Post Procedure: Patient was taken to the recovery and monitored. The patient was provided a Pain Log to continue to record the patient's response to the target- specific procedure prior to the patient's follow-up visit with the referring physician. Patient was stable upon discharge. Detailed post procedure instructions were provided. Patient was asked to call in the event of worsening pain, fever, weakness, numbness or bladder or bowel incontinence.
== END 2023-11-21 16:03 | disposition home or self-care (01) ==
LOC: RAD 14:57
PROVIDERS: PCP Family Medicine; Referring Provider Anesthesiology; Visit Provider Anesthesiology
DX: M54.16 Radiculopathy, lumbar region (principal)
CPT/HCPCS: 62323; 99152; J1100; J2250

== ENCOUNTER → 2023-12-18 08:07 | Outpatient (CLI) | payer MEDICARE, OTHER, SELFPAY ==
[2022-12-22 14:08] VITALS: BMI 21.4
[2023-12-18 08:58] LABS: Add Manual Diff / Slide Review NO; Basophils Absolute Auto 0 /uL (0-100); Eosinophils Absolute Auto 100 /uL (0-450); Eosinophils Percent Auto 2.7 % (2-4); Hemoglobin 11.8 g/dL (12.0-16.0); Lymphocytes Absolute Auto 1100 /uL (1100-4500); Lymphocytes Percent Auto 28.8 % (25-40); Mean Corpuscular HGB Conc 33.6 % (30-36); Mean Corpuscular Hemoglobin 31.5 PG (26-34); Mean Corpuscular Volume 93.6 fL (80-100); Monocytes Absolute Auto 300 /uL (0-900); Monocytes Percent Auto 7.7 % (3-14); Neutrophils Absolute Auto 2400 /uL (1500-7000); Neutrophils Percent Auto 59.8 % (50-75); Platelet Count 210 X10^3/uL (150-400); Red Blood Cell Count 3.73 X10^6/uL (4.0-5.2); Red Cell Distribution Width 13.1 % (11.6-14.8)
[2023-12-18 09:08] LABS: Alanine Aminotransferase 21 IU/L (<35); Albumin 3.8 g/dL (3.5-5.0); Albumin Globulin Ratio 1.5 (1.0-2.8); Alkaline Phosphatase 53 U/L (38-126); Aspartate Aminotransferase 34 IU/L (14-36); BUN Creatinine Ratio 16.2 (6-22); Bilirubin Total 0.9 mg/dL (0.2-1.3); Blood Urea Nitrogen 12 mg/dL (7-17); Calcium 9.3 mg/dL (8.4-10.2); Carbon Dioxide 30 mmol/L (22-32); Chloride 106 mmol/L (98-107); Cholesterol 171 mg/dL (140-199); Estimated Glomerular Filt Rate > 60 mL/min (>60); Globulin 2.5 g/dL (1.7-4.1); Glucose 96 mg/dL (80-110); HEMOLYSIS < 15 (0-50); Lipase 123 U/L (23-300); Potassium 4.2 mmol/L (3.4-5.1); Sodium 139 mmol/L (137-145); Total Protein 6.3 g/dL (6.3-8.2); Triglycerides 46 mg/dL (35-150)
[2023-12-18 09:15] LABS: HDL Cholesterol 110 mg/dL (40-60); LDL Cholesterol Calculated 52 mg/dL (<100)
[2023-12-18 09:37] LABS: TSH w/ Reflex to FT4 1.52 uIU/mL (0.47-4.68)
[2023-12-18 09:45] LABS: Creatinine Urine Random 84.3 mg/dL
[2023-12-18 09:52] LABS: Microalbumin Urine Random < 0.6 mg/dL (0-1.6)
[2023-12-19 03:52] LABS: Apolipoprotein B 57 mg/dL (<90)
[2023-12-19 12:43] LABS: Interpretation Negative (Negative)
== END ==
LOC: LAB 08:08
PROVIDERS: PCP Family Medicine; Referring Provider Family Medicine; Visit Provider Family Medicine
DX: Z00.00 Encounter for general adult medical examination without abnormal findings (principal); E78.5 Hyperlipidemia, unspecified; R10.13 Epigastric pain; I10 Essential (primary) hypertension
CPT/HCPCS: 36415; 80053; 80061; 82043; 82172; 82570; 83013; 83690; 84443; 85025

== ENCOUNTER → 2023-12-21 11:27 | Outpatient (CLI) | payer MEDICARE, OTHER, SELFPAY ==
[2022-12-22 14:08] VITALS: BMI 21.4
[2023-12-24 21:09] LABS: Fecal Immunochemical Test Negative (Negative)
== END ==
PROVIDERS: PCP Family Medicine; Referring Provider Family Medicine; Visit Provider Family Medicine
DX: Z00.00 Encounter for general adult medical examination without abnormal findings (principal); E78.5 Hyperlipidemia, unspecified; I10 Essential (primary) hypertension
CPT/HCPCS: 36415; 82274

== ENCOUNTER → 2024-02-19 09:36 | Outpatient (CLI) | payer MEDICARE, OTHER, SELFPAY ==
[2022-12-22 14:08] VITALS: BMI 21.4
--- NOTE | 2024-02-19 | DI.CT.S_ITS ---
PROCEDURE: CT PEL WO CON INDICATIONS: Other specified dorsopathies, sacral and sacrococc TECHNIQUE: Noncontrast 3 mm axial sections acquired through the bony pelvis, with coronal and sagittal reformatting as well as small field of view sagittal and oblique coronal reformats through the sacrum. For radiation dose reduction, the following was used: automated exposure control, adjustment of mA and/or kV according to patient size. COMPARISON: [facility], CR, XR SACRUM COCCYX MIN 2V, 01/28/2021, 15:30. [facility], MR, MR LUMBAR SPINE WO CON, 11/09/2023, 15:56. FINDINGS: Image quality: Excellent. Bones: Postsurgical changes are seen in the included lower lumbar spine with pedicle screws, interbody rods, and disc spacer at L4-5. Lucency surrounding the L5 pedicle screws is suspicious for loosening. Degenerative changes are noted at the lumbosacral junction. No acute osseous abnormality is seen. No suspicious intraosseous lesion. Mild degenerative changes are seen in the sacroiliac joints bilaterally with subchondral sclerosis and small marginal osteophytes. Mild degenerative changes are seen in the hips bilaterally. Soft tissues: The musculature surrounding pelvis is normal in bulk. The status post hysterectomy. The included pelvic soft tissues demonstrate no acute abnormality. Mild colonic diverticulosis is seen. Surgical clips are seen in the right lower abdominal wall. IMPRESSION: 1. Mild bilateral sacroiliac joint osteoarthrosis. 2. Postsurgical changes at the lower lumbar spine with mild lucency surrounding the L5 pedicle screws that is suspicious for loosening. Degenerative changes are also noted at the lower lumbar spine. 3. Mild degenerative changes in the hips bilaterally. Approved by: Andres Joseph M.D. on 02/19/2024 at 14:24
== END ==
PROVIDERS: PCP Family Medicine; Referring Provider Neurological Surgery; Visit Provider Neurological Surgery
DX: M47.816 Spondylosis without myelopathy or radiculopathy, lumbar region (principal); M46.1 Sacroiliitis, not elsewhere classified; M53.88 Other specified dorsopathies, sacral and sacrococcygeal region; K57.90 Diverticulosis of intestine, part unspecified, without perforation or abscess without bleeding; Z98.1 Arthrodesis status; Z90.710 Acquired absence of both cervix and uterus
CPT/HCPCS: 72192

== ENCOUNTER → 2024-06-13 10:12 | Outpatient (CLI) | payer MEDICARE, OTHER, SELFPAY ==
[2022-12-22 14:08] VITALS: BMI 21.4
--- NOTE | 2024-06-13 10:13 | DI.CT.S_ITS ---
PROCEDURE: CT PEL WO CON INDICATIONS: Other specified dorsopathies TECHNIQUE: Noncontrast 3 mm axial sections acquired through the bony pelvis, with coronal and sagittal reformatting. COMPARISON: [facility], CT, CT PEL WO CON, 02/19/2024, 9:43. FINDINGS: Image quality: Excellent. Bones: Posterior fusion instrumentation with posterior decompression and interbody spacer of the lower lumbar spine, incompletely visualized. There is mild periprosthetic lucency of the right L4 transpedicular screw, and of bilateral L5 transpedicular screw, raising concern for loosening, unchanged from prior exam. Interval screw fixation of the left sacroiliac joint. No hardware complication. Mild degenerative changes of the right sacroiliac joint. The sacrum is intact. Chondrocalcinosis of the pubic symphysis, representing CPPD arthropathy. Bilateral hips are well aligned. No acute fracture or dislocation of either hip. Mild degenerative change of the right hip. Joint space of the left hip is grossly well aligned. No avail avascular necrosis of either femoral head. Soft tissues: Status post hysterectomy. The ovaries are not visualized. No bowel obstruction in the pelvis. Surgical clips in the anterior pelvic wall. IMPRESSION: 1. Interval screw fixation of the left sacroiliac joint. No hardware complication. 2. Postprocedure changes in the lumbar spine, incompletely visualized. Mild periprosthetic lucency of the right L4 and bilateral L5 transpedicular screws, concerning for loosening, unchanged. Dictated by: Bridgett Reid M.D. on 06/13/2024 at 12:22 Approved by: Bridgett Reid M.D. on 06/13/2024 at 12:29
== END ==
LOC: CT 10:13
PROVIDERS: PCP Family Medicine; Referring Provider Neurological Surgery; Visit Provider Neurological Surgery
DX: M46.1 Sacroiliitis, not elsewhere classified (principal); Z98.1 Arthrodesis status
CPT/HCPCS: 72192

== ENCOUNTER → 2024-06-16 09:33 | Outpatient (CLI) | payer MEDICARE, OTHER, SELFPAY ==
[2022-12-22 14:08] VITALS: BMI 21.4
[2024-06-16 10:34] LABS: Add Manual Diff / Slide Review NO; Basophils Absolute Auto 0 /uL (0-100); Basophils Percent Auto 0.8 % (0-2); Eosinophils Absolute Auto 100 /uL (0-450); Eosinophils Percent Auto 2.3 % (2-4); Hematocrit 36.4 % (36-46); Hemoglobin 12.1 g/dL (12.0-16.0); Lymphocytes Absolute Auto 1100 /uL (1100-4500); Lymphocytes Percent Auto 32.5 % (25-40); Mean Corpuscular HGB Conc 33.3 % (30-36); Mean Corpuscular Volume 92.9 fL (80-100); Monocytes Absolute Auto 300 /uL (0-900); Monocytes Percent Auto 8.7 % (3-14); Neutrophils Absolute Auto 1900 /uL (1500-7000); Neutrophils Percent Auto 55.7 % (50-75); Platelet Count 180 X10^3/uL (150-400); Red Blood Cell Count 3.92 X10^6/uL (4.0-5.2); Red Cell Distribution Width 13.3 % (11.6-14.8); White Blood Cell Count 3.5 X10^3/uL (4.5-11.0)
[2024-06-16 10:50] LABS: Alanine Aminotransferase 19 IU/L (<35); Albumin Globulin Ratio 1.6 (1.0-2.8); Alkaline Phosphatase 69 U/L (38-126); Aspartate Aminotransferase 37 IU/L (14-36); BUN Creatinine Ratio 15.2 (6-22); Bilirubin Total 0.6 mg/dL (0.2-1.3); Blood Urea Nitrogen 12 mg/dL (7-17); Calcium 9.2 mg/dL (8.4-10.2); Carbon Dioxide 26 mmol/L (22-32); Chloride 104 mmol/L (98-107); Estimated Glomerular Filt Rate > 60 mL/min (>60); Globulin 2.5 g/dL (1.7-4.1); Glucose 99 mg/dL (80-110); HEMOLYSIS < 15 (0-50); Potassium 4.2 mmol/L (3.4-5.1); Sodium 137 mmol/L (137-145); Total Protein 6.5 g/dL (6.3-8.2)
[2024-06-16 11:11] LABS: Free T4, Direct Thyroxine 1.02 ng/dL (0.78-2.19)
[2024-06-16 11:24] LABS: Thyroid Stimulating Hormone 0.941 uIU/mL (0.47-4.68)
== END ==
PROVIDERS: PCP Family Medicine; Referring Provider Internal Medicine; Visit Provider Internal Medicine
DX: I48.0 Paroxysmal atrial fibrillation (principal)
CPT/HCPCS: 36415; 80053; 84439; 84443; 85025

== ENCOUNTER → 2024-08-06 09:06 | Outpatient (CLI) | payer MEDICARE, OTHER, SELFPAY ==
[2022-12-22 14:08] VITALS: BMI 21.4
[2024-08-06 09:51] LABS: Add Manual Diff / Slide Review NO; Basophils Absolute Auto 0 /uL (0-100); Basophils Percent Auto 0.6 % (0-2); Eosinophils Absolute Auto 0 /uL (0-450); Eosinophils Percent Auto 0.2 % (2-4); Hemoglobin 12.2 g/dL (12.0-16.0); Lymphocytes Absolute Auto 2300 /uL (1100-4500); Lymphocytes Percent Auto 47.5 % (25-40); Mean Corpuscular HGB Conc 33.8 % (30-36); Mean Corpuscular Hemoglobin 30.7 PG (26-34); Mean Corpuscular Volume 90.8 fL (80-100); Monocytes Absolute Auto 700 /uL (0-900); Monocytes Percent Auto 14.1 % (3-14); Neutrophils Absolute Auto 1800 /uL (1500-7000); Neutrophils Percent Auto 37.6 % (50-75); Platelet Count 147 X10^3/uL (150-400); Red Blood Cell Count 3.96 X10^6/uL (4.0-5.2); Red Cell Distribution Width 13.7 % (11.6-14.8); White Blood Cell Count 4.8 X10^3/uL (4.5-11.0)
[2024-08-06 10:11] LABS: Alanine Aminotransferase 27 IU/L (<35); Albumin 3.9 g/dL (3.5-5.0); Albumin Globulin Ratio 1.5 (1.0-2.8); Alkaline Phosphatase 93 U/L (38-126); Aspartate Aminotransferase 50 IU/L (14-36); BUN Creatinine Ratio 12.6 (6-22); Bilirubin Total 0.6 mg/dL (0.2-1.3); Blood Urea Nitrogen 11 mg/dL (7-17); Calcium 9.2 mg/dL (8.4-10.2); Carbon Dioxide 23 mmol/L (22-32); Chloride 104 mmol/L (98-107); Estimated Glomerular Filt Rate > 60 mL/min (>60); Globulin 2.6 g/dL (1.7-4.1); Glucose 106 mg/dL (80-110); HEMOLYSIS < 15 (0-50); Potassium 4.5 mmol/L (3.4-5.1); Sodium 135 mmol/L (137-145); Total Protein 6.5 g/dL (6.3-8.2)
== END ==
LOC: LAB 09:08
PROVIDERS: PCP Family Medicine; Referring Provider Family Medicine; Visit Provider Family Medicine
DX: I10 Essential (primary) hypertension (principal); D72.819 Decreased white blood cell count, unspecified
CPT/HCPCS: 36415; 80053; 85025

== ENCOUNTER → 2024-08-12 07:43 | Outpatient (CLI) | payer MEDICARE, OTHER, SELFPAY ==
[2022-12-22 14:08] VITALS: BMI 21.4
--- NOTE | 2024-08-12 | DI.ECHO.S_ITS ---
[facility] +---------+ [facility] : : [address] : : [place] : : [id number] : : Phone: [phone] Echocardiogram Report + + :Name: ALEXANDRE CARRASCO Study Date: 08/12/2024 Height: 64 in : :[facility] ReadingLocation: Weight: 119 lb : : Gender: Female BSA: 1.6 m2 : :: 1945 Age: 78 yrs BP: 109/72 mmHg: :Reason For Study: Atrial fibrillation - paroxysmal : :Ordering Physician: Edward Aguilera Performed By: Linda Hill : :Referring: EDWARD AGUILERA : + + Interpretation Summary 1. The left ventricular contractility is normal. Estimate ejection fraction is greater than 60% with no segmental wall motion abnormalities. No LVH. Unable to comment on diastolic function. 2. The right ventricular contractility is normal. 3. All cardiac chambers are normal size. 4. Mild aortic insufficiency. 5. No obvious intracardiac shunts. 6. No obvious intracardiac masses nor thrombi. 7. No hemodynamically significant pericardial effusion. 8. Low right-sided filling pressures. Conclusion: Normal biventricular systolic function with mild aortic insufficiency. Procedure: A two-dimensional transthoracic echocardiogram with color flow and Doppler was performed. The study quality was technically adequate. There is no prior echocardiogram noted for this patient. The patient was in sinus rhythm with heart rates between 66-72 bpm during the exam. Left Ventricle: The left ventricle is normal in size and wall thickness. The ejection fraction is estimated to be 60-65%. Right Ventricle: The right ventricle is normal in size and function. Atria: The left atrial size is normal. Right atrial size is normal. There is no Doppler evidence for an interatrial shunt. Mitral Valve: There is a flat closure plane of the the mitral valve leaflets. There is trace mitral regurgitation. Aortic Valve: The aortic valve is trileaflet. The aortic valve opens well. There is no aortic valve stenosis. There is mild aortic regurgitation. Tricuspid Valve: The tricuspid valve is normal in structure and function. There is trace tricuspid regurgitation. The right ventricular systolic pressure is estimated to be at least 22 mmHg based on an estimated right atrial pressure of 3 mm Hg. Pulmonic Valve: The pulmonic valve is not well seen, but is grossly normal. There is no pulmonic valvular regurgitation. Great Vessels: The aortic root is normal size. The dimensions of the ascending aorta are normal. The IVC is of normal diameter and collapses greater than 50% with a sniff. This suggests a low right atrial pressure of 3 mm Hg. Pericardium/ Pleura There is a trivial pericardial effusion noted. There is no pleural effusion. MMode/2D Measurements & Calculations LVIDd: 4.5 cm LVOT diam: 2.0 cm LVIDs: 2.8 cm Ao root diam: 2.9 cm FS: 36.9 % asc Aorta Diam: 3.3 cm EPSS: 0.45 cm Ao Arch Diam (Prox Trans): 1.9 cm IVSd: 0.75 cm LVPWd: 0.75 cm LV ceballos. diameter/BSA (cm/m^2): 2.8 LV sys. diameter/BSA (cm/m^2): 1.8 LA A2 area: 16.3 cm2 RA long axis: 4.2 cm LA A4 area: 12.5 cm2 RA area: 12.6 cm2 LA length (vol): 4.4 cm RA vol: 32.4 ml LA vol: 39.5 ml RA : 20.7 ml/m2 LA vol index: 25.2 ml/m2 IVC diam: 1.2 cm RVD1 (basal): 3.4 cm TAPSE: 2.5 cm Doppler Measurements & Calculations Ao V2 max: 133.9 cm/sec LVOT Max Vince: 87.9 cm/sec Ao V2 mean: 94.7 cm/sec LV V1 max P.1 mmHg Ao max P.2 mmHg LV V1 VTI: 19.9 cm Ao mean P.0 mmHg JUDY(I,D): 2.0 cm2 Ao V2 VTI: 31.0 cm JUDY(V,D): 2.0 cm2 sev ratio: 0.64 JUDY indexed to BSA (cm^2/m^2): 1.3 AI P1/2t: 572.8 msec AI dec slope: 224.6 cm/sec2 MV E max vince: 57.3 cm/sec TR max vince: 217.6 cm/sec MV A max vince: 50.6 cm/sec TR max P.9 mmHg MV E/A: 1.1 PA V2 max: 81.1 cm/sec Med Peak E' Vince: 6.8 cm/sec PA V2 mean: 60.6 cm/sec E/E' med: 8.5 PA mean P.6 mmHg Lat Peak E' Vince: 7.0 cm/sec PA pr(Accel): 32.8 mmHg E/E' lat: 8.1 E/e' average: 8.3 MV dec time: 0.20 sec SV(LVOT): 61.9 ml Reading Physician:
--- NOTE | 2024-08-12 17:00 | DI.NM.S_ITS ---
DATE OF SERVICE: 08/12/2024 EXERCISE TREADMILL STRESS TEST PROCEDURE: Exercise treadmill stress test without imaging. ORDERING PROVIDER: Spencer Aguilera MD. INDICATIONS: The patient is a 78-year-old female with paroxysmal atrial fibrillation with an episode of chest discomfort and dyspnea. FINDINGS: 1. The patient was able to exercise for 9 minutes on a standard Severo protocol suggesting exceptional exercise capacity with an RENEA of -73%, achieving 10.1 METs. 2. She had a normal heart rate and blood pressure response to exercise, achieving a maximum heart rate of 131 BPM (92% of her predicted maximum). 3. She had no chest discomfort or other anginal symptoms. 4. Her resting ECG shows sinus rhythm at [address] segments. With stress, she develops 1 to 2 mm of predominantly upsloping ST depression in the inferolateral leads, although challenging to assess because of motion artifact. However, these abnormalities resolv within 1 minute of recovery without any late repolarization abnormalities and are thus nonspecific. There were no arrhythmias with sinus rhythm throughout the study. IMPRESSION: 1. Probable normal, low-risk exercise treadmill stress test for ischemia. 2. Nonspecific ST-segment abnormalities that resolved promptly in recovery. 3. Exceptional exercise capacity without angina or arrhythmias. Devi Vaca - /alek/SKB doc#: [id number]/job#: [id number] dd: 08/12/2024 16:11:00 dt: 08/12/2024 16:19:00 DICTATING MD/COPIES TO: Fernando Land MD; Spencer Aguilera MD COPIES MNE: CHAVEZ;
== END ==
PROVIDERS: PCP Family Medicine; Referring Provider Internal Medicine; Visit Provider Internal Medicine
DX: I48.0 Paroxysmal atrial fibrillation (principal); I35.1 Nonrheumatic aortic (valve) insufficiency
CPT/HCPCS: 93017; 93306

== ENCOUNTER → 2024-08-29 11:53 | Outpatient (CLI) | payer MEDICARE, OTHER, SELFPAY ==
[2022-12-22 14:08] VITALS: BMI 21.4
--- NOTE | 2024-08-29 11:55 | DI.MG.S_ITS ---
UNILATERAL RIGHT DIGITAL SCREENING MAMMOGRAM 3D/2D WITH CAD: 08/29/2024 CLINICAL: Routine screening. Personal history of left breast cancer. Family history of breast cancer. Comparison is made to exams dated: 10/02/2023 breast MRI, 09/04/2023 mammogram, 09/19/2023 mammogram, 08/09/2022 mammogram, 06/30/2021 mammogram, and 06/25/2020 mammogram - [facility]. There are scattered areas of fibroglandular density (category b / 25%-50% glandular tissue). Current study was also evaluated with a Computer Aided Detection (CAD) system. No significant masses, calcifications, or other findings are seen in the breast. There has been no significant interval change. IMPRESSION: NEGATIVE There is no mammographic evidence of malignancy. A 1 year screening mammogram is recommended. Future imaging is recommended as follows: 09/05/2024 screening mammogram. This exam was interpreted at Station ID: [id number]. NOTE: For mammograms, a report in lay terms will be sent to the patient. Approximately 15% of breast malignancies will not be visualized mammographically. In the management of a palpable breast mass, a negative mammogram must not discourage biopsy of a clinically suspicious lesion. Electronically Signed By: Andres gilliam/thor:08/29/2024 14:12:46 letter sent: Normal Exam ACR BI-RADS Category 1: Negative
== END ==
PROVIDERS: PCP Family Medicine; Referring Provider Family Medicine; Visit Provider Family Medicine
DX: Z12.31 Encounter for screening mammogram for malignant neoplasm of breast (principal); Z85.3 Personal history of malignant neoplasm of breast; Z80.3 Family history of malignant neoplasm of breast
CPT/HCPCS: 77063; 77067

== ENCOUNTER → 2024-11-20 11:38 | Outpatient (CLI) | payer MEDICARE, OTHER, SELFPAY ==
[2022-12-22 14:08] VITALS: BMI 21.4
--- NOTE | 2024-11-20 11:40 | DI.RAD.S_ITS ---
PROCEDURE: XR FOREARM LT 2V INDICATIONS: Left elbow pain TECHNIQUE: 2 views of the forearm were acquired. COMPARISON: None. FINDINGS: Bones: No fractures or dislocations. No suspicious bony lesions. Prior ORIF distal radius. Soft tissues: No suspicious soft tissue calcifications or masses. IMPRESSION: Prior distal radius ORIF, source of new pain not found. Dictated by: Bairon Jain M.D. on 11/20/2024 at 11:57 Approved by: Bairon Jain M.D. on 11/20/2024 at 11:57
--- NOTE | 2024-11-20 11:40 | DI.RAD.S_ITS ---
PROCEDURE: XR ELBOW LT MIN 3V INDICATIONS: Left elbow pain TECHNIQUE: 3 views of the elbow were acquired. COMPARISON: None. FINDINGS: Bones: No fractures or dislocations. No suspicious bony lesions. Soft tissues: No elbow joint effusion. No suspicious soft tissue calcifications. IMPRESSION: No acute bony abnormality or significant joint effusion. Dictated by: Ernestina Segundo MD, PhD on 11/20/2024 at 11:56 Approved by: Ernestina Segundo MD, PhD on 11/20/2024 at 11:56
== END ==
PROVIDERS: PCP Family Medicine; Referring Provider Physician Assistant Medical; Visit Provider Physician Assistant Medical
DX: M79.632 Pain in left forearm (principal); M25.522 Pain in left elbow
CPT/HCPCS: 73080; 73090

== ENCOUNTER 2025-02-18 16:36 | Emergency (ER) | payer MEDICARE, OTHER, SELFPAY ==
[2024-12-01 16:12] VITALS: BMI 21.4
[2025-02-18 16:39] VITALS: BP 143/68; PULSE 68; RESP 18; TEMP 36.8; O2SAT 97; BMI 20.5
--- NOTE | 2025-02-18 16:43 | DI.RAD.S_ITS ---
PROCEDURE: XR HAND RT MIN 3V INDICATIONS: fall/pain TECHNIQUE: 3 views of the hand(s) acquired. COMPARISON: None. FINDINGS: Bones: No acute fractures or dislocations. Osteoarthritic changes are noted throughout right hand and wrist joints. Old injury involving tip of ulnar styloid is seen with well corticated fragment. Carpal bones are normally aligned. No suspicious bony lesions. Soft tissues: No suspicious soft tissue calcifications. IMPRESSION: No acute right hand fracture or dislocation. Right hand and wrist joint osteoarthritis. Dictated by: Amilcar Aguilera M.D. on 02/18/2025 at 17:13 Approved by: Amilcar Aguilera M.D. on 02/18/2025 at 17:14
--- NOTE | 2025-02-18 18:15 | ED_ITS ---
HPI - Extremity Injury (Upper) General Chief Complaint: Extremity Injury, Upper Stated Complaint: RT hand pain, fell on it Time Seen by Provider: 02/18/25 18:15 Source: patient Mode of arrival: Ambulatory History of Present Illness HPI narrative: 79-year-old female with past medical history of hyperlipidemia, hypertension, presenting from home for evaluation of right hand pain, she said had a mechanical trip and fall a today, states pain is really to the top/middle of the hand, neurovascularly intact, slight skin abrasion noted but no active bleeding, does not endorse any other injury or pain, not any blood thinners. Related Data Home Medications Medication Instructions Recorded Confirmed CHOLECALCIFEROL (VITAMIN D) 2,000 units PO QDAY ##0 02/11/13 12/04/24 calcium acetate(phosphat bind) 667 667 mg PO Q DAY ##0 02/11/13 12/04/24 mg capsule Previous Rx's Medication Instructions Recorded estradiol 10 mcg vaginal tablet 10 mcg vaginal 2XW #30 tabs 01/09/23 (Vagifem) atorvastatin 40 mg tablet 40 mg PO QPM #90 tabs 02/07/24 estradiol 0.01% (0.1 mg/gram) 1 g vaginal 2XW #42.5 grams 07/28/24 vaginal cream tramadol 50 mg tablet 50 mg PO DAILY PRN pain #30 tabs 09/26/24 trazodone 100 mg tablet See Rx Instructions .Route 02/02/25 .COMPLEX #270 tabs Allergies Allergy/AdvReac Type Severity Reaction Status Date / Time codeine [CODEINE] AdvReac Mild GI upset Verified 12/04/24 10:36 Review of Systems Review of Systems Narrative: General: Denies fever, chills, weight loss HEENT: Denies headache, eye drainage, eye irritation, head trauma, sore throat, voice change Cardiovascular: Denies any chest pain, palpitations, tachycardia Respiratory: Denies any shortness of breath, cough, wheeze, stridor GI/: Denies any abdominal pain, nausea, vomiting, diarrhea, bright red blood per rectum, melanotic stools, urinary frequency, urinary retention, dysuria, hematuria MSK: Positive right hand/wrist pain Skin: Denies any rashes, lesions, discoloration Neuro: Denies any headache, lightheadedness, dizziness, fainting, weakness Psych: Denies SI/HI Patient History Medical History (Updated 02/18/25 @ 18:45 by Edward Grover DO) Loosening of spinal fixation device Cluneal neuropathy Chronic pain Left buttock pain Low back pain Lumbar radiculopathy Depression Breast cancer, left (11/1995) IBS (irritable bowel syndrome) Afib (~2018) HTN (hypertension) HLD (hyperlipidemia) Facet arthropathy, lumbar Lymphedema (09/01/02) Ingrown toenail of left foot with infection Degenerative disc disease Loose stools Palpitations Surgical History Status post lumbar spinal fusion History of bunionectomy of left great toe History of right knee joint replacement (~2017) Hx of arthroscopy of right knee Hx of bilateral cataract extraction Status post hysterectomy with oophorectomy History of total mastectomy Family History Brother Age: 79 Cancer Hypertension Father Congestive heart failure Stroke Mother Breast CA Alcoholism Hypertension Social History household members: significant other alcohol intake: current substance use type: marijuana Smoking Status: Never smoker alcohol intake frequency: 0-2 drinks per day Exam Narrative Exam Narrative: General: Cooperative, well-developed, not in acute distress HEENT: Normocephalic, atraumatic, PERRLA, normal sclera, eyelids normal Neck: Active full range of motion, atraumatic Chest: Normal to inspection, negative crepitus, no overlying erythema ecchymosis Respiratory: Normal respiratory effort, not in acute respiratory distress, yumiko ar to auscultation bilaterally negative cough, wheeze, tachypnea, rhonchi, rales Cardiology: Regular rate rhythm negative gallop, murmur, rubs GI/: No tenderness to palpation, soft, non rigid, normal to inspection, exam deferred MSK: Full active range of motion in all 4 extremities, atraumatic, right upper extremity neurovascularly intact no signs of ecchymosis gross deformity, patient states minor pain with full flexion-extension of the wrist Skin: No rashes or lesions noted Neuro: Alert awake oriented x3, moves all 4 extremities spontaneously, cranial nerves intact, able to answer all questions appropriately follows commands appropriately Psych: Cooperative, negative suicidal or homicidal ideations Initial Vital Signs Initial Vital Signs: Vital Signs Temperature 98.2 F 02/18/25 16:39 Pulse Rate 68 02/18/25 16:39 Respiratory Rate 18 02/18/25 16:39 Blood Pressure 143/68 H 02/18/25 16:39 Pulse Oximetry 97 02/18/25 16:39 Oxygen Delivery Method Room Air 02/18/25 16:39 Course Orders Ordered: ED Orders 02/18/25 16:43 XR hand RT min 3V Stat Vital Signs Vital signs: Vital Signs - 8 hr 02/18/25 16:39 Temperature 98.2 F Pulse Rate 68 Respiratory Rate 18 Blood Pressure 143/68 H Pulse Oximetry 97 Oxygen Delivery Method Room Air MDM - Extremity Injury (Upper) Differential Diagnosis Differential diagnosis: Likely other (Strain, sprain, fracture, contusion) Imaging Data Extremity x-ray #1: Radiologist's Impression: [address] [address] XRay Report Signed Patient: Devi Vaca MR#: [id number] : 1945 Acct:[id number] Age/Sex: 79 / F Date of Service: 02/18/25 Loc: ED Accession Number: [id number] Procedure: XR hand RT min 3V Ordering Provider: To Perez MD PROCEDURE: XR HAND RT MIN 3V INDICATIONS: fall/pain TECHNIQUE: 3 views of the hand(s) acquired. COMPARISON: None. FINDINGS: Bones: No acute fractures or dislocations. Osteoarthritic changes are noted throughout right hand and wrist joints. Old injury involving tip of ulnar styloid is seen with well corticated fragment. Carpal bones are normally aligned. No suspicious bony lesions. Soft tissues: No suspicious soft tissue calcifications. IMPRESSION: No acute right hand fracture or dislocation. Right hand and wrist joint osteoarthritis. MDM Narrative Medical decision making narrative: 79-year-old female with past medical history of hyperlipidemia hypertension presenting for right hand/wrist pain, had mechanical trip and fall earlier today on the grass, no head strike not on any blood thinners on exam neurovascularly intact, some minor pain with extension and flexion of the right wrist, x-rays without any signs of fracture, patient will be sent home with splint for support, informed to follow up with the PCP in outpatient setting verbalized understanding of this and agrees to being discharged home with outpatient follow up Discharge Plan Departure Patient Disposition: Home Clinical Impression: Contusion of hand Instructions: DI for Contusion Activity Restrictions/Additional Instructions: Please follow up with the primary care doctor, you can take Motrin or Tylenol for your pain Please read the discharge instructions sheet carefully and bring all papers to all doctor follow-up visits, as it may contain information that your doctor may want to see. Disease processes change and evolve, if your symptoms worsen or if you develop any new symptoms that are concerning to you please return for evaluation. Your evaluation today does not show any evidence of any life- threatening/serious illnesses requiring admission to the hospital or surgery. Please follow-up with your doctor for re-evaluation in approximately 1 day. Seek immediate medical attention for any worrisome symptoms. *If you do not have a primary care provider please contact the [facility] Resource line at [phone]. They will ask some questions about your medical history and help get you set up with a doctor in the community. Prescriptions: No Action calcium acetate(phosphat bind) 667 MG capsule 667 mg PO Q DAY Qty: 0 CHOLECALCIFEROL (VITAMIN D) 2,000 units PO QDAY Qty: 0 estradiol [Vagifem] 10 mcg tablet 10 mcg VAG 2XW Qty: 30 3RF atorvastatin 40 mg tablet 40 mg PO QPM Qty: 90 3RF estradiol 0.01 % (0.1 mg/gram) cream 1 g vaginal 2XW Qty: 42.5 0RF Rx Instructions: use cream or tablet, but not both tramadol 50 mg tablet 50 mg PO DAILY PRN (Reason: pain) Qty: 30 3RF trazodone 100 mg tablet See Rx Instructions .ROUTE .COMPLEX Qty: 270 0RF Dose Instruction: TAKE THREE TABLETS BY MOUTH NIGHTLY AT BEDTIME Rx Instructions: TAKE THREE TABLETS BY MOUTH NIGHTLY AT BEDTIME Referrals: Juan A Garcia MD [Primary Care Provider] - Stand Alone Forms: Patient Portal/API/Survey
[2025-02-18 18:58] VITALS: BP 138/65; PULSE 65; RESP 17; O2SAT 98
== END 2025-02-18 18:59 | disposition home or self-care (01) ==
PROVIDERS: Emergency Provider Student in an Organized Health Care Education/Training Program; PCP Family Medicine
DX: S60.221A Contusion of right hand, initial encounter (principal); W01.0XXA Fall on same level from slipping, tripping and stumbling without subsequent striking against object, initial encounter
CPT/HCPCS: 73130; 99281; 99283

== ENCOUNTER → 2025-03-31 08:51 | Outpatient (CLI) | payer MEDICARE, OTHER, SELFPAY ==
[2024-12-01 16:12] VITALS: BMI 21.4
[2025-03-31 09:28] LABS: Add Manual Diff / Slide Review NO; Hematocrit 36.5 % (36-46); Hemoglobin 12.6 g/dL (12.0-16.0); Lymphocytes Absolute Auto 1100 /uL (1100-4500); Mean Corpuscular HGB Conc 34.5 % (30-36); Mean Corpuscular Hemoglobin 32.1 PG (26-34); Mean Corpuscular Volume 93.0 fL (80-100); Platelet Count 204 X10^3/uL (150-400)
[2025-03-31 09:49] LABS: Alanine Aminotransferase 19 IU/L (<35); Albumin 4.7 g/dL (3.5-5.0); Albumin Globulin Ratio 1.9 (1.0-2.8); Alkaline Phosphatase 71 U/L (38-126); Blood Urea Nitrogen 17 mg/dL (7-17); Calcium 9.8 mg/dL (8.4-10.2); Carbon Dioxide 28 mmol/L (22-32); Chloride 102 mmol/L (98-107); Cholesterol 179 mg/dL (140-199); Estimated Glomerular Filt Rate > 60 mL/min (>60); Globulin 2.5 g/dL (1.7-4.1); Glucose 98 mg/dL (70-99); HDL Cholesterol 103 mg/dL (40-60); HEMOLYSIS < 15 (0-50); Potassium 4.2 mmol/L (3.4-5.1); Sodium 137 mmol/L (137-145); Total Protein 7.2 g/dL (6.3-8.2); Triglycerides 68 mg/dL (35-150)
== END ==
PROVIDERS: PCP Family Medicine; Referring Provider Family Medicine; Visit Provider Family Medicine
DX: I10 Essential (primary) hypertension (principal); M47.816 Spondylosis without myelopathy or radiculopathy, lumbar region; Z98.1 Arthrodesis status; B37.9 Candidiasis, unspecified; E78.5 Hyperlipidemia, unspecified
CPT/HCPCS: 36415; 80053; 80061; 82043; 82172; 82570; 85025; 87040

== ENCOUNTER → 2025-04-02 11:33 | Outpatient (CLI) | payer MEDICARE, OTHER, SELFPAY ==
[2024-12-01 16:12] VITALS: BMI 21.4
== END ==
PROVIDERS: PCP Family Medicine; Referring Provider Family Medicine; Visit Provider Family Medicine
DX: Z12.11 Encounter for screening for malignant neoplasm of colon (principal)
CPT/HCPCS: 82274

== ENCOUNTER → 2025-04-09 19:05 | Outpatient (CLI) | payer MEDICARE, OTHER, SELFPAY ==
[2024-12-01 16:12] VITALS: BMI 21.4
--- NOTE | 2025-04-09 19:16 | DI.MRI.S_ITS ---
PROCEDURE: MR ANKLE LT WO CON INDICATIONS: TEAR OF LEFT ACHILLES TECHNIQUE: Noncontrast sagittal T1 spin echo and T2 fast spin echo with fat saturation, axial proton density fast spin echo and T2 fast spin echo with fat saturation, coronal T1 spin echo and T2 fast spin echo with fat saturation through the ankle/hindfoot. COMPARISON: [facility] [place], CR, XR ANKLE 3+ VIEWS LEFT, 03/26/2025, 11:09. FINDINGS: Image quality: Excellent. Bones and joints: No acute trabecular bone injury or fracture. No hindfoot coalitions. No osteochondral injuries of the talar dome. Mild degenerative spurring of the dorsal talonavicular and naviculocuneiform articulations. Mild sagging of the midfoot is suspicious for pes planus. Medial structures: The deltoid ligament and the spring ligament complex are intact. The posterior tibialis, flexor digitorum longus, and flexor hallucis longus tendons are intact. The posterior tibial neurovascular bundle appears normal within the tarsal tunnel, without extrinsic mass effect. Lateral structures: The anterior talofibular, calcaneofibular, and posterior talofibular ligaments are intact. The anterior and posterior tibiofibular ligaments are intact. The peroneus longus and brevis tendons demonstrate tendinosis with flattening of the peroneus brevis tendon. Possible focal chronic longitudinal split tearing of the peroneus brevis tendon at the level of the distal fibula. The sinus tarsi demonstrates normal fatty signal. Anterior structures: The tibialis anterior, extensor hallucis longus, and extensor digitorum longus tendons appear intact. Posterior and plantar structures: Moderate thickening of the Achilles tendon with small foci of intrasubstance fluid signal that may represent low-grade partial tearing. The bulk of the tendon fibers remain intact. There is surrounding soft tissue edema throughout the posterior ankle and Kager's fat pad. The proximal plantar fascia is thickened without surrounding edema. No abductor digiti minimi muscle atrophy to suggest Youssef neuropathy. IMPRESSION: 1. Moderate Achilles tendinosis with superimposed low-grade partial intrasubstance tearing. The bulk of the tendon fibers remain intact. Surrounding soft tissue edema is present. 2. [id number] peroneus brevis and longus tendinosis with flattening of the peroneus brevis tendon and possible focal chronic longitudinal split tearing. 3. Mild sagging of the midfoot is suspicious for pes planus. Mild degenerative spurring of the dorsal talonavicular and naviculocuneiform joints.. Approved by: Andres Joseph M.D. on 04/10/2025 at 15:03
== END ==
LOC: MRI 19:06
PROVIDERS: PCP Family Medicine; Referring Provider Podiatrist; Visit Provider Podiatrist
DX: S86.012A Strain of left Achilles tendon, initial encounter (principal); X58.XXXA Exposure to other specified factors, initial encounter
CPT/HCPCS: 73721

== ENCOUNTER 2025-09-08 10:53 | Emergency (ER) | payer MEDICARE, OTHER, SELFPAY ==
[2024-12-01 16:12] VITALS: BMI 21.4
[2025-09-08 11:20] VITALS: BP 136/64; PULSE 56; RESP 16; TEMP 36.6; O2SAT 98; BMI 20.5
--- NOTE | 2025-09-08 11:25 | DI.RAD.S_ITS ---
PROCEDURE: XR FOOT LT MIN 3V INDICATIONS: foot injury TECHNIQUE: 3 views of the foot were acquired. COMPARISON: [facility], CR, XR ANKLE LT MIN 3V, 09/08/2025, 11:20. FINDINGS: Bones: Mildly displaced 5th metatarsal base fracture. Scattered IP degenerative narrowing. Surgical screws overlie the 1st metatarsal. Soft tissues: No tibiotalar joint effusion. Achilles tendon appears normal. IMPRESSION: Mildly displaced 1st metatarsal base fracture. Dictated by: Shasha Wiley M.D. on 09/08/2025 at 11:47 Approved by: Shasha Wiley M.D. on 09/08/2025 at 11:48
--- NOTE | 2025-09-08 11:25 | DI.RAD.S_ITS ---
PROCEDURE: XR ANKLE LT MIN 3V INDICATIONS: foot injury TECHNIQUE: 3 views of the ankle were acquired. COMPARISON: [facility], MR, MR ANKLE LT WO CON, 04/09/2025, 19:32. [facility], CR, XR FOOT LT MIN 3V, 09/08/2025, 11:20. FINDINGS: Bones: 5th metatarsal base fracture mildly displaced. Ankle mortise is normally aligned. No suspicious bony lesions. Postsurgical screws overlying the 1st metatarsal. Degenerative IP narrowing. Calcaneal spur. Soft tissues: No tibiotalar joint effusion. Achilles tendon appears normal. IMPRESSION: Mildly displaced 5th metatarsal base fracture. Dictated by: Shasha Wiley M.D. on 09/08/2025 at 11:46 Approved by: Shasha Wiley M.D. on 09/08/2025 at 11:47
--- NOTE | 2025-09-08 12:41 | ED.LOWEXIN ---
HPI - Extremity Injury (Lower) General Chief Complaint: Extremity Injury, Lower Stated Complaint: tripped and hurt left foot. Time Seen by Provider: 09/08/25 11:24 Source: patient Mode of arrival: Wheelchair History of Present Illness HPI Narrative: 79-year-old female with past medical history hyperlipidemia, hypertension, lumbar arthropathy presents to the ED with a left foot injury sustained yesterday. Patient states that she had a piriformis injection yesterday, which caused her left foot to be numb, she therefore tripped on her left foot and injured it. Since then, patient states that the foot is extremely painful and bruised. No numbness, tingling, weakness. Related Data Home Medications ?Medication ?Instructions ?Recorded ?Confirmed calcium acetate(phosphat bind) 667 667 mg PO Q DAY ##0 02/11/13 08/24/25 mg capsule cholecalciferol (vitamin D3) 50 50 mcg PO DAILY 03/09/25 08/24/25 mcg (2,000 unit) capsule Previous Rx's ?Medication ?Instructions ?Recorded estradiol 10 mcg vaginal tablet 10 mcg vaginal 2XW #30 tabs 01/09/23 (Vagifem) minoxidil 2.5 mg tablet 5 mg (2 x 2.5 mg) PO DAILY #180 03/03/25 tabs atorvastatin 40 mg tablet 40 mg PO QPM #90 tabs 03/04/25 estradiol 0.01% (0.1 mg/gram) 1 g vaginal 2XW #42.5 grams 07/24/25 vaginal cream tramadol 50 mg tablet See Rx Instructions PO BID PRN 08/13/25 pain #60 tabs trazodone 100 mg tablet 300 mg (3 x 100 mg) PO BEDTIME 08/13/25 #270 tabs methocarbamol 500 mg tablet 500 mg PO BEDTIME PRN spasms #30 09/01/25 tabs oxycodone-acetaminophen 5 mg-325 1 tab PO Q6H PRN pain #10 tabs 09/08/25 mg tablet (Percocet) Allergies Allergy/AdvReac Type Severity Reaction Status Date / Time codeine (CODEINE) AdvReac Mild GI upset Verified 08/24/25 09:43 Review of Systems Constitutional Constitutional: Denies chills, Denies fatigue, Denies fever(s), Denies frequent falls, Denies lethargy and Denies weakness Eyes Eyes: Denies change in vision, Denies eye discharge, Denies irritation and Denies loss of vision ENT Ears, Nose, Mouth, and Throat: Denies change in voice, Denies dizziness, Denies neck pain, Denies sore throat and Denies throat swelling Cardiovascular Cardiovascular: Denies chest pain, Denies irregular heart rhythm, Denies lightheadedness, Denies palpitations, Denies dyspnea, Denies dyspnea on exertion and Denies orthopnea Respiratory Respiratory: Denies cough, Denies dyspnea, Denies dyspnea on exertion and Denies wheezing Gastrointestinal Gastrointestinal: Denies abdominal pain, Denies change in bowel habits, Denies diarrhea, Denies nausea and Denies vomiting Musculoskeletal Musculoskeletal: Denies neck pain and Denies numbness Comments: Left foot bruising, pain Integumentary/Breasts Skin/Breast: Denies pruritus, Denies erythema, Denies rash and Denies wounds Neurologic Neurologic: Denies behavioral changes, Denies confusion, Denies dizziness, Denies frequent falls, Denies loss of vision, Denies numbness and Denies weakness Psychiatric Psychiatric: Denies anxiety, Denies behavioral changes, Denies confusion, Denies depression, Denies homicidal ideation and Denies suicidal ideation Endocrine Endocrine: Denies fatigue, Denies flushing and Denies palpitations Hematologic/Lymphatic Hematologic/Lymphatic: Denies easy bruising Allergic/Immunologic Allergic/Immunologic: Denies urticaria, Denies throat swelling and Denies wheezing Patient History Medical History [place] parapsilosis infection Loosening of spinal fixation device Cluneal neuropathy Chronic pain Left buttock pain Low back pain Lumbar radiculopathy Depression Breast cancer, left (11/1995) IBS (irritable bowel syndrome) Afib (~2019) HTN (hypertension) HLD (hyperlipidemia) Facet arthropathy, lumbar Lymphedema (09/01/02) Ingrown toenail of left foot with infection Degenerative disc disease Loose stools Palpitations Surgical History Status post lumbar spinal fusion History of bunionectomy of left great toe History of right knee joint replacement (~2018) Hx of arthroscopy of right knee Hx of bilateral cataract extraction Status post hysterectomy with oophorectomy History of total mastectomy Family History Brother Age: 80 Cancer Hypertension Father Congestive heart failure Stroke Mother Breast CA Alcoholism Hypertension Social History household members: significant other alcohol intake: current substance use type: marijuana alcohol intake frequency: 0-2 drinks per day Exam Narrative Exam Narrative: Const General:?cooperative, healthy appearing and comfortable [facility] Head:?normal to inspection Ears:?hearing grossly normal bilaterally Nose:?external nose normal Face and sinus:?normal facial exam and sinuses nontender Mouth:?oral mucosae normal Throat:?posterior oropharynx normal Eyes General:?appearance normal, both eyes and all related structures Neck Neck:?normal visual inspection and no lymphadenopathy noted Resp Effort & Inspection:?normal respiratory effort Auscultation:?clear to auscultation bilaterally Cardio Rate:?regular rate Rhythm:?regular rhythm Musculoskeletal There is bruising, swelling of dorsal left foot. Full range of motion. Patient is able to walk, albeit with pain Neurovascularly intact. Neuro General:?patient alert, patient awake and patient oriented x3 Initial Vital Signs Initial Vital Signs: Vital Signs Temperature 97.8 F 09/08/25 11:20 Pulse Rate 56 L 09/08/25 11:20 Respiratory Rate 16 09/08/25 11:20 Blood Pressure 136/64 09/08/25 11:20 Pulse Oximetry 98 09/08/25 11:20 Oxygen Delivery Method Room Air 09/08/25 11:20 Course Orders Ordered: ED Orders 09/08/25 11:25 XR ankle LT min 3V Stat XR foot LT min 3V Stat Vital Signs Vital signs: Vital Signs - 8 hr 09/08/25 11:20 09/08/25 14:01 Temperature 97.8 F Pulse Rate 56 L 62 Respiratory Rate 16 16 Blood Pressure 136/64 137/63 Pulse Oximetry 98 97 Oxygen Delivery Method Room Air Room Air MDM - Extremity Injury (Lower) MDM Narrative Medical decision making narrative: 79-year-old female with past medical history hyperlipidemia, hypertension, lumbar arthropathy presents to the ED with a left foot injury sustained yesterday. Concern for fracture/dislocation versus musculoskeletal sprain/strain versus other. X-rays were obtained which shows mildly displaced 5th metatarsal base fracture. No other acute findings. Patient fitted in a boot, weight-bearing as tolerated. Pain medications prescribed. Recommend follow-up with PCP/ortho. ED return precautions discussed with patient. Patient verbalized understanding. Medical records reviewed: Yes Discharge Plan Departure Patient Disposition: Home Clinical Impression: Closed fracture of fifth metatarsal bone Qualifiers: Encounter type: initial encounter Fracture alignment: displaced Laterality: left Qualified Code(s): S92.352A - Displaced fracture of fifth metatarsal bone, left foot, initial encounter for closed fracture Instructions: DI for Foot Fracture Activity Restrictions/Additional Instructions: You were evaluated in the emergency department today for a foot injury. You do have a foot fracture which is causing your symptoms. You have been fitted with a boot. Please keep the boot on for the next 6 weeks, you may walk and weight bear as you feel comfortable. Please follow-up with your PCP or ortho specialist as soon as possible. Return to the ED if you have worsening symptoms, numbness, tingling, weakness. Prescriptions: New oxycodone-acetaminophen [Percocet] 5-325 mg tablet 1 tab PO Q6H PRN (Reason: pain) Qty: 10 0RF No Action calcium acetate(phosphat bind) 667 MG capsule 667 mg PO Q DAY Qty: 0 estradiol [Vagifem] 10 mcg tablet 10 mcg VAG 2XW Qty: 30 3RF atorvastatin 40 mg tablet 40 mg PO QPM Qty: 90 3RF estradiol 0.01 % (0.1 mg/gram) cream 1 g vaginal 2XW Qty: 42.5 0RF Rx Instructions: use cream or tablet, but not both tramadol 50 mg tablet See Rx Instructions PO BID PRN (Reason: pain) Qty: 60 3RF Rx Instructions: Can take 2 tabs orally twice a day PRN severe pain; trazodone 100 mg tablet 300 mg PO BEDTIME Qty: 270 0RF methocarbamol 500 mg tablet 500 mg PO BEDTIME PRN (Reason: spasms) Qty: 30 1RF cholecalciferol (vitamin D3) 50 mcg (2,000 unit) capsule 50 mcg PO DAILY minoxidil 2.5 mg tablet 5 mg PO DAILY Qty: 180 3RF Referrals: Juan A Garcia MD [Primary Care Provider, Family Practice] Stand Alone Forms: Patient Portal/API
[2025-09-08 14:01] VITALS: BP 137/63; PULSE 62; RESP 16; O2SAT 97
== END 2025-09-08 14:48 | disposition home or self-care (01) ==
PROVIDERS: Emergency Provider Student in an Organized Health Care Education/Training Program; PCP Family Medicine
DX: S92.352A Displaced fracture of fifth metatarsal bone, left foot, initial encounter for closed fracture (principal); W01.0XXA Fall on same level from slipping, tripping and stumbling without subsequent striking against object, initial encounter
CPT/HCPCS: 29580; 73610; 73630; 99281; 99283